=== PATIENT | male | born 1950 | race African-American/Black ===

== ENCOUNTER 2024-06-23 01:03 | Emergency (ER) | payer MEDICARE, SELFPAY ==
[2024-06-23] VITALS (8 sets, daily range): BP systolic 153–166; BP diastolic 58–73; BMI 28.2
--- NOTE | 2024-06-23 06:55 | ED.MUSCINJ ---
HPI-Injury
General
Chief Complaint: Musculo-Skeletal Complaint
Source: patient
Exam Limitations: none
Time Seen by Provider: 06/23/24 06:25
History of Present Illness-Injury
Initial Injury comments:
74-year-old male with history of dementia on Eliquis presents with daughter from [place] [facility] who states the patient has been complaining of hip pain left greater than the right and inability to straighten his leg. Patient is very inconsistent
historian. No reported recent injury. No reported fever. Patient denies chest pain or shortness of breath.
Phy Exam
Physical Exam
Physical Exam:
General: Well-appearing male no acute respiratory distress HEENT: Normocephalic atraumatic
Heart: Regular rate and rhythm
Lungs: Clear no wheeze
Musculoskeletal exam: The patient is slightly tender about the left hip. He prefers to hold his left hip in flexion. His right hip is able to be extended. He is very rigid and stiff with his left leg.
Skin: No rash
Extremities: No cyanosis extremities: No cyanosis
Injury Course
Orders/Labs/Results
Orders:
Orders
06/23/24 06:41
CR Femur - Left Min 2 Vw Urgent
Comment:
Reason For Exam: pain
CR Pelvis - 1 Or 2 Views Urgent
Comment:
Reason For Exam: pain
Venous Doppler Lwr Ext Bilat [US Periph Venous LOWER Ext Jeremi] Urgent
Comment:
Reason For Exam: pain in legs
06/23/24 06:[address] Non Medication Order As Directed
Physician Order: Please check rectal temp
Above order entered?: Yes
06/23/24 06:57
CPK [Creatine Phosphokinase] Stat
Complete Blood Count/With Diff Urgent
Comprehensive Metabolic Panel Urgent
Abnormal Lab Results
06/23/24
06:57
WBC 11.5 H 10^3/uL
(4.8-10.8)
RBC 2.98 L 10^6/uL
(4.70-6.10)
Hgb 8.3 L g/dL
(13.0-18.0)
Hct 23.6 L %
(39.0-52.0)
MCV 79.2 L fL
(80.0-94.0)
RDW 17.2 H %
(11.5-14.5)
Abs Immat Gran (auto) 0.2 H 10^3/uL
(0-0.05)
Absolute Neuts (auto) 8.6 H 10^3/uL
(1.4-6.5)
Absolute Monos (auto) 1.0 H 10^3/uL
(0.1-0.6)
Immature Gran % 1.3 H %
(0-0.5)
Lymphocytes % 11.5 L %
(20.5-51.1)
Chloride 112 H mmol/L
(98-107)
Carbon Dioxide 21 L mmol/L
(22-30)
BUN 23 H mg/dl
(9-20)
AST 16 L U/L
(17-59)
Creatine Kinase 26 L U/L
(55-170)
Total Protein 6.1 L g/dl
(6.3-8.2)
Albumin 3.0 L g/dl
(3.5-5.0)
06/23/24 06:57
06/23/24 06:57
MDM/Problems Addressed
Differential Diagnosis Includes:
Hip and leg pain. Consider spasm versus fracture versus DVT versus rhabdomyolysis.
Workup initiated with labs CPK ultrasound legs and x-rays.
*Critical Care Note
Total Time (30-74mins, 75-104mins- exclusive of procedures): Not Applicable
Update Note
Update Note:
Ultrasound negative both legs for DVT. X-rays were also negative. Labs reviewed no evidence of rhabdomyolysis. I suspect patient may be developing a contracture of his hip. No indication for admission. Stable for discharge back to facility
ED Attending Note
-
Portions of this chart may have been created with voice recognition software.� Occasional wrong word or��sound alike� substitutions may have occurred due to the inherent limitations of voice recognition software.
Discharge Plan
Departure
Patient Disposition: Home (Routine Discharge)
Date of Disposition: 06/23/24
Time of Disposition: 09:50
Patient with high blood pressure during this ER visit?: No
Discharge Problem:
Contracture of hip
Referrals:
Fredrick Glez, DO [Family Provider] -
Activity Restrictions/Additional Instructions:
Please continue to follow-up with the orthopedic doctor. Continue current medication regimen. Return if worse
Interventions
Interventions:
*Risk Screen - Suicide Last Done: 06/23/24 01:25
*General Assessment Last Done: 06/23/24 01:25
*Neglect/Abuse Screening Last Done: 06/23/24 01:25
*ED- Fall Risk Assessment Last Done: 06/23/24 01:25
*ED COVID-19 Vaccine History Last Done: 06/23/24 01:25
ED-Musculoskeletal Assessment Last Done: 06/23/24 01:30
Discharge Date and Time
Print Language: SLOVAK
[2024-06-23 07:18] LABS: ALT (SGPT) < 10 U/L (0-50); AST (SGOT) 16 U/L (17-59); Alkaline Phosphatase 107 U/L (38-126); Blood Urea Nitrogen 23 mg/dl (9-20); Calcium 8.7 mg/dl (8.4-10.2); Carbon Dioxide 21 mmol/L (22-30); Chloride 112 mmol/L (98-107); Creatine Phosphokinase 26 U/L (55-170); Estimated Creatinine Clearance 46 ml/min; Glucose 90 mg/dl (70-99); Potassium 3.9 mmol/L (3.5-5.1); Sodium 140 mmol/L (135-145); Total Bilirubin 0.5 mg/dl (0.2-1.3); Total Protein 6.1 g/dl (6.3-8.2); eGFR > 60.00
[2024-06-23 07:20] LABS: % Basophils 0.7 % (0-2); % Eosinophils 2.4 % (0-6); % Immature Granulocytes 1.3 % (0-0.5); % Lymphocytes 11.5 % (20.5-51.1); % Monocytes 8.9 % (1.7-9.3); % Neutrophils 75.2 % (42.2-75.2); Absolute Basophils 0.1 10^3/uL (0-0.2); Absolute Eosinophils 0.3 10^3/uL (0-0.7); Absolute Immature Granulocytes 0.2 10^3/uL (0-0.05); Absolute Lymphocytes 1.3 10^3/uL (1.2-3.4); Absolute Neutrophils 8.6 10^3/uL (1.4-6.5); Hematocrit 23.6 % (39.0-52.0); Hemoglobin 8.3 g/dL (13.0-18.0); Mean Corp Hgb Conc. 35.2 g/dL (33.0-37.0); Mean Corpuscular Hgb 27.9 pg (27.0-31.0); Mean Corpuscular Volume 79.2 fL (80.0-94.0); Nucleated Red Blood Cells % 0 % (-); Red Blood Cell Count 2.98 10^6/uL (4.70-6.10); Red Cell Dist. Width 17.2 % (11.5-14.5); White Blood Cell Count 11.5 10^3/uL (4.8-10.8)
[2024-06-23 09:07] LABS: Platelet Count 225 10^3/uL (130-400)
== END 2024-06-23 12:50 | disposition home or self-care (01) ==
LOC: EMR 01:03
PROVIDERS: Physician Assistant; EMERGENCY PHYSICIAN Emergency Medicine; FAMILY PHYSICIAN Internal Medicine
DX: M24.559 Contracture, unspecified hip (principal); F03.90 Unspecified dementia, unspecified severity, without behavioral disturbance, psychotic disturbance, mood disturbance, and anxiety; Z79.01 Long term (current) use of anticoagulants; M79.605 Pain in left leg; M79.604 Pain in right leg
CPT/HCPCS: 99284; 72170; 73552; 80053; 82550; 85025; 93970

== ENCOUNTER 2024-07-02 13:04 | Emergency (ER) | payer MEDICARE, SELFPAY ==
[2024-07-02 13:08] VITALS: BP 159/75
[2024-07-02 14:00] VITALS: BP 150/71
--- NOTE | 2024-07-02 15:14 | ED.GENMED ---
History of Present Illness
General
Chief Complaint: Anal/Rectal Problem
Source: patient
Exam Limitations: none
Time Seen by Provider: 07/02/24 14:52
History of Present Illness
History of Present Illness:
74-year-old male presents from [facility] with a discharge coming from his anus. He is status post colostomy. They note a large amount of discharge and normal. Patient has no complaints of pain. No reported fever. No other
complaints at this time
Phy Exam
Physical Exam
Physical Exam:
General: Well-appearing male no acute respiratory distress
HEENT: Normocephalic atraumatic
Heart: Regular rate and rhythm
Lungs: Clear no wheeze
Abdomen: Colostomy with output abdomen is soft and nontender
Rectal exam: Mucousy discharge noted from anus no excessive amount noted on diaper. No purulent drainage. No skin breakdown
Course
Vital Signs
Initial and Last Documented VS:
Initial Vital Signs
Temp Pulse Resp BP Pulse Ox
99.3 F 88 16 159/75 100
07/02/24 13:08 07/02/24 13:08 07/02/24 13:08 07/02/24 13:08 07/02/24 13:08
Last Documented Vital Signs
Temp Pulse Resp BP Pulse Ox
99.3 F 88 16 159/75 100
07/02/24 13:08 07/02/24 13:08 07/02/24 13:08 07/02/24 13:08 07/02/24 13:08
MDM/Problems Addressed
Differential Diagnosis Includes:
Patient with mucus drainage from anus. He is status post colostomy. No sign of infection pain-free at this point this is likely a normal physiologic process as he still has functioning rectal tissue. No indication for any intervention otherwise.
Stable for discharge back to facility
*Critical Care Note
Total Time (30-74mins, 75-104mins- exclusive of procedures): Not Applicable
ED Attending Note
-
Portions of this chart may have been created with voice recognition software.� Occasional wrong word or��sound alike� substitutions may have occurred due to the inherent limitations of voice recognition software.
Discharge Plan
Departure
Patient Disposition: Home (Routine Discharge)
Date of Disposition: 07/02/24
Time of Disposition: 15:17
Patient with high blood pressure during this ER visit?: No
Discharge Problem:
Rectal discharge
Prescriptions:
No Action
acetaminophen [Tylenol] 325 mg Tablet
650 mg PO Q6HPRN PRN (Reason: mild pain)
ondansetron HCl [Zofran] 4 mg Tablet
4 mg PO Q8HPRN PRN (Reason: nausea)
famotidine [Pepcid] 20 mg Tablet
20 mg PO DAILY
magnesium hydroxide [Milk of Magnesia] 400 mg/5 mL Suspension
2,400 mg PO HSPRN PRN (Reason: if no bm by 3rd day)
amlodipine [Norvasc] 10 mg Tablet
10 mg PO DAILY
bisacodyl [Dulcolax (bisacodyl)] 10 mg Suppository
10 mg [place] DAILYPRN PRN (Reason: if no bm aftr mom)
sertraline 25 mg Tablet
25 mg PO DAILY
hydralazine 50 mg Tablet
50 mg PO TID
insulin lispro 100 unit/mL Solution
1 sliding scale dose SC ACHS
Rx Instructions:
201-250=4unit, 251-300=6units
oxycodone 5 mg Tablet
2.5 mg PO BID
oxycodone 5 mg Tablet
5 mg PO HS
oxycodone 5 mg Tablet
10 mg PO DAILYPRN PRN (Reason: severe pains)
mirtazapine 7.5 mg Tablet
7.5 mg PO HS
Eliquis 5 mg Tablet
5 mg PO BID
potassium chloride 20 mEq Tablet Extended Release
20 meq PO DAILY
balsam brandon-castor oil [Venelex] Ointment
1 applic TOPICAL TID
Referrals:
UNKNOWN - PT NOT,INTERVIEWE [Family Provider] -
Activity Restrictions/Additional Instructions:
The discharge seen from the patient's rectum today is normal. There is no sign of infection. Return here if needed
Interventions
Interventions:
*Risk Screen - Suicide Last Done: 07/02/24 13:08
*General Assessment Last Done: 07/02/24 13:08
*Neglect/Abuse Screening Last Done: 07/02/24 13:08
*ED- Fall Risk Assessment Last Done: 07/02/24 13:08
*ED COVID-19 Vaccine History Last Done: 07/02/24 13:08
QG-Oznjou-Sudnsapapg Assessment Last Done: 07/02/24 13:08
Discharge Date and Time
Print Language: SERBIAN
--- NOTE | 2024-07-02 18:24 | CM ---
Received CM referral, for request to set-up services in the home , as family are unhappy with the care at [facility]. Spoke to and Daughter who stated that since a fractured hip approximately 5 months ago, he has been in a state of decline.
They stated he had been at two other SNF's , which they had care concerns as well and had a stay at [facility] for a perforated Colon. They stated another Daughter is a nurse at [facility] and they felt that she could check in on him ,
to make sure he was being cared for appropriately, but they feel on the days she does not work, that he is not getting the same care. They did state that they have been working with the Omnabudsman at [facility] as well as making staff at [facility]
aware of their concerns so they could be addressed. Since they continue to be unhappy with the care they have therefore decided to take him home.
I made them aware that if they are in need of private care givers , as well as additional pieces of medical equipment , and other services that it takes time to set-up them all up, and I would not want to send him home until the services he needs
are in place. I did state that we had spoken to Mahendra , at [facility], and he stated that he could return this evening, and that he would have a social media campaign manager visit them in the morning to start to arrange services so that he can go home. They said that
they have an extended family, with family members who can assist in his care, along with his two daughters who are nurses. I stated I would follow-up with [facility] in the Morning to insure that their social media campaign manager sees them to start the process of
setting up services for him to go home. Update to ED Nurse that Family agreeable for him to return to [facility] tonight , with the goal of social media campaign manager at [facility] setting up services so that he can be discharged home.
Spoke to Rukhsana, Liaison for [facility], made her aware that patient will be returning tonight to [facility] with the plan that the Deck Hand at [facility] would meet with them in the morning , to start the process of setting up services for him to go
home. She stated that she would make the facility aware that he would be returning tonight and she would follow-up to make sure that the social media campaign manager there met with them in the morning.
[2024-07-02 20:09] VITALS: BP 166/75
== END 2024-07-02 20:25 | disposition home or self-care (01) ==
LOC: EMR 13:04
PROVIDERS: EMERGENCY PHYSICIAN Emergency Medicine
DX: K62.89 Other specified diseases of anus and rectum (principal); Z93.3 Colostomy status
CPT/HCPCS: 99282

== ENCOUNTER 2024-07-05 22:39 | Inpatient (IN) | payer MEDICARE, SELFPAY ==
[2024-07-05] VITALS (13 sets, daily range): BP systolic 122–155; BP diastolic 58–78; BMI 27.3
--- NOTE | 2024-07-05 18:24 | EDRN ---
Patient arrived with a 16 [address] catheter in place. Catheter tubing was filled and clogged with milky like urine. Catheter was removed. After catheter was removed patient noted moderate bleeding from the penis. [address] catheter was
placed by Vee LORENZANA. a large amount of bloody urine was drained at first which then turned to a thick milky urine.
[2024-07-05 18:25] LABS: Urine Albumin 3+ (Neg - Trace); Urine Bilirubin Negative (Negative); Urine Character Cloudy (Clear); Urine Color Amber; Urine Glucose Negative (Negative); Urine Ketone Negative (Negative); Urine Leukocyte 3+ (Negative); Urine Nitrite Positive (Negative); Urine Occult Blood 4+ (Negative); Urine Specific Gravity 1.015 (<1.030); Urine Urobilinogen Negative (Neg - 1+)
[2024-07-05 18:27] LABS: Hematocrit 29.3 % (39.0-52.0); Hemoglobin 10.2 g/dL (13.0-18.0); Mean Corp Hgb Conc. 34.8 g/dL (33.0-37.0); Mean Corpuscular Hgb 27.6 pg (27.0-31.0); Mean Corpuscular Volume 79.4 fL (80.0-94.0); Mean Platelet Volume 9.7 fL (7.4-10.4); Platelet Count 281 10^3/uL (130-400); Red Blood Cell Count 3.69 10^6/uL (4.70-6.10); Red Cell Dist. Width 17.7 % (11.5-14.5); White Blood Cell Count 29.5 10^3/uL (4.8-10.8)
[2024-07-05 18:32] LABS: Lactic Acid 6.7 mmol/L (0.7-2.0)
[2024-07-05 18:37] LABS: Urine Bacteria Few (Negative); Urine Squamous Cell 0-2 /LPF (Few); Urine White Cell 90-100 /HPF (0-5)
[2024-07-05 18:46] LABS: Blood Urea Nitrogen 41 mg/dl (9-20); Calcium 9.4 mg/dl (8.4-10.2); Carbon Dioxide 15 mmol/L (22-30); Chloride 105 mmol/L (98-107); Estimated Creatinine Clearance 13 ml/min; Glucose 120 mg/dl (70-99); Sodium 139 mmol/L (135-145); eGFR 15.23
[2024-07-05] MEDS: ZOSYN 50 IV (18:52)
[2024-07-05] MEDS: NSS 2200 ML IV (18:52)
[2024-07-05] MEDS: OFIRMEV 100 IV (18:53)
[2024-07-05 19:02] LABS: % Basophils 0.3 % (0-2); % Immature Granulocytes 0.9 % (0-0.5); % Monocytes 7.7 % (1.7-9.3); % Neutrophils 89.1 % (42.2-75.2); Absolute Basophils 0.1 10^3/uL (0-0.2); Absolute Immature Granulocytes 0.3 10^3/uL (0-0.05); Absolute Lymphocytes 0.6 10^3/uL (1.2-3.4); Absolute Monocytes 2.3 10^3/uL (0.1-0.6); Absolute Neutrophils 26.3 10^3/uL (1.4-6.5); Nucleated Red Blood Cells % 0.1 % (-)
[2024-07-05 19:47] LABS: ALT (SGPT) < 10 U/L (0-50); AST (SGOT) 15 U/L (17-59); Albumin 3.1 g/dl (3.5-5.0); Alkaline Phosphatase 78 U/L (38-126); Blood Urea Nitrogen 42 mg/dl (9-20); Calcium 8.2 mg/dl (8.4-10.2); Carbon Dioxide 17 mmol/L (22-30); Chloride 107 mmol/L (98-107); Estimated Creatinine Clearance 15 ml/min; Glucose 108 mg/dl (70-99); Potassium 5.8 mmol/L (3.5-5.1); Sodium 136 mmol/L (135-145); eGFR 16.77
--- NOTE | 2024-07-05 20:30 | ED.GENMED ---
History of Present Illness
General
Chief Complaint: Change in Mental Status
Time Seen by Provider: 07/05/24 18:08
History of Present Illness
History of Present Illness:
74-year-old male with history of A-fib, CHF, hypertension, and hyperlipidemia presents the emergency department from [facility] due to a change in mental status. On arrival the patient is confused, tachycardic, and febrile.
His Cordon catheter appears to be clogged and an exchange was performed by RNs at the bedside with rapid return of purulent/milky urine
Review of Systems
Review of Systems
Allergies reviewed?: Yes
All Other Systems: ROS reviewed and negative except as documented in HPI and ROS
Phy Exam
Physical Exam
Physical Exam:
GEN: Ill-appearing, tachypneic, otherwise no distress
HEENT: Oral mucosa dry, no scleral icterus
Cardiac: Tachycardic, regular
Lung: Tachypneic, diminished bibasilar breath sound
Abdomen: Soft, nontender, right lower quadrant ostomy with greenish-brown stool in the bag
: Profoundly purulent urine present in Cordon catheter tubing and bag
MSK: No gross deformity or injuries
Skin: Good color, no pallor or jaundice, no rashes
Neuro: Floridly confused, follows commands
Psych: Calm, cooperative
Sepsis
Sepsis Screening
Sepsis Assessment: Septic Shock
Sepsis Screening: Lactate >/=4mmol/L
Sepsis Screen
Sepsis Screen: Septic Shock
Date: 07/05/24
Time: 23:33
Course
Orders/Labs/Results
Orders:
Orders
07/05/24 18:02
Electrocardiogram (*1) Urgent
Reason for Study: Other
Other Reason for Exam: Possible Sepsis
EKG- Treatment ONCE
Straight cath- Treatment ONCE
07/05/24 18:03
Basic Metabolic Panel Urgent
Complete Blood Count/With Diff Urgent
Blood Culture Q20M
STEPHANIE Source: Blood/Venous
Specimen Description:
Comment: Urgent from separate sites. If patient screens positive for possible sepsis
Blood Culture Q20M
STEPHANIE Source: Blood/Venous
Specimen Description:
Comment: Urgent from separate sites. If patient screens positive for possible sepsis
07/05/24 18:04
Lactic Acid Q4H
Comment: ON ICE, CANCEL 2ND ORDER IF FIRST LACTIC ACID LEVEL <2
Urinalysis Reflex To Culture Urgent
Date Specimen was Collected: 07/05/24
Time Specimen was Collected: 18:02
Urine Microscopic Reflex Cult Urgent
Urine Culture Urgent
STEPHANIE Source: U
Specimen Description:
Date Specimen was Collected: 07/05/24
Time Specimen was Collected: 18:02
07/05/24 18:32
Piperacillin/Tazo 3.375 Gram [Zosyn] 3.375 gram in 50 ml IV NOW
07/05/24 18:33
0.9% Sodium Chloride 1000 ml [Nss] 2,200 ml IV NOW STA
07/05/24 18:34
Acetaminophen 1000MG/100Ml [Ofirmev] 1,000 mg in 100 ml IV ONCE
Acetaminophen IV Indication:: ED Narcotic Naive Pt-ONCE
07/05/24 18:50
CT Abd/pel Without Iv Or Oral Urgent
Comment:
Reason For Exam: urosepsis
07/05/24 19:11
Comprehensive Metabolic Panel Urgent
07/05/24 20:30
Dextrose 5%/Water 1000 ml [D5w] 1,000 ml Sodium Bicarbonate 150 meq IV 125 mls/hr
07/05/24 21:53
Admit/Transfer Patient As Directed
Co-Sign Provider:
Level of Care: Inpatient admission
Assign to:: IMU- Intermediate Care
Physician / Group: Abimbola
Diagnosis: sepsis
Reason for Hospitalization: sepsis
Expected length of stay greater than two midnights?: Yes
ELOS- Estimated Length of Stay in days: 2
I certify the patient meets the requirements for IP care: Yes
07/05/24 21:54
PRN Pain Medication Management As Directed
May give lesser potent ordered pain med per pt: Yes
preference::
Protocol:: Medication orders for pain may be administered in a
manner that supports deferring to patient preference
when the pt is:
- Requesting an ordered lesser potent pain medication.
Least to most potent pain medications are defined
as: acetaminophen < NSAID < tramadol < opioids
(morphine, oxycodone, hydromorphone).
- Requesting a lesser dose of the same medication IF
ORDERED.
- Requesting a less intrusive route of administration
if both routes are prescribed by the provider (PO <
IV).
07/05/24 21:56
Code Status As Directed
Resuscitation Status: Full Code
07/05/24 22:00
0.45% Sodium Chloride 1000 ml [0.45%NaCl] 1,000 ml Sodium Bicarbonate 75 meq IV 100 mls/hr
07/05/24 22:15
Lactic Acid Q4H
Comment: ON ICE, CANCEL 2ND ORDER IF FIRST LACTIC ACID LEVEL <2
Abnormal Lab Results
07/05/24 07/05/24 07/05/24
18:03 18:04 19:11
WBC 29.5 H 10^3/uL
(4.8-10.8)
RBC 3.69 L 10^6/uL
(4.70-6.10)
Hgb 10.2 L g/dL
(13.0-18.0)
Hct 29.3 L %
(39.0-52.0)
MCV 79.4 L fL
(80.0-94.0)
RDW 17.7 H %
(11.5-14.5)
Abs Immat Gran (auto) 0.3 H 10^3/uL
(0-0.05)
Absolute Neuts (auto) 26.3 H 10^3/uL
(1.4-6.5)
Absolute Lymphs (auto) 0.6 L 10^3/uL
(1.2-3.4)
Absolute Monos (auto) 2.3 H 10^3/uL
(0.1-0.6)
Immature Gran % 0.9 H %
(0-0.5)
Neutrophils % 89.1 H %
(42.2-75.2)
Lymphocytes % 2.0 L %
(20.5-51.1)
Potassium 5.8 H mmol/L
(3.5-5.1)
Carbon Dioxide 15 L mmol/L 17 L mmol/L
(22-30) (22-30)
BUN 41 H mg/dl 42 H mg/dl
(9-20) (9-20)
Creatinine 3.9 H mg/dL 3.6 H mg/dL
(0.7-1.3) (0.7-1.3)
Glucose 120 H mg/dl 108 H mg/dl
(70-99) (70-99)
Lactic Acid 6.7 H* mmol/L
(0.7-2.0)
Calcium 8.2 L mg/dl
(8.4-10.2)
AST 15 L U/L
(17-59)
Total Protein 6.0 L g/dl
(6.3-8.2)
Albumin 3.1 L g/dl
(3.5-5.0)
Ur Occult Blood Reflex 4+ A
(Negative)
Urine Nitrite (Reflex) Positive A
(Negative)
Leukocyte Esterase Rfl 3+ A
(Negative)
Urine RBC 3-6 A /HPF
(0-2)
Urine WBC (Reflex) 90-100 A /HPF
(0-5)
Urine Bacteria (Reflex) Few A
(Negative)
Urine Albumin (Reflex) 3+ A
(Neg - Trace)
07/05/24 18:03
07/05/24 19:11
Vital Signs
Initial and Last Documented VS:
Initial Vital Signs
Pulse Resp BP Pulse Ox
120 33 155/68 99
07/05/24 18:00 07/05/24 18:00 07/05/24 18:00 07/05/24 18:00
Last Documented Vital Signs
Temp Pulse Resp BP Pulse Ox
102.6 F H 88 33 136/59 99
07/05/24 18:17 07/05/24 22:00 07/05/24 22:00 07/05/24 22:00 07/05/24 21:45
MDM/Problems Addressed
MDM/Problems Addressed:
Patient is severely ill with multiorgan failure secondary to septic shock from urinary tract infection. Broad-spectrum IV antibiotics and IV fluid resuscitation initiated, started on bicarbonate drip due to metabolic acidosis with hyperkalemia.
*Critical Care Note
Total Time (30-74mins, 75-104mins- exclusive of procedures): Not Applicable
Update Note
Update Note:
Attempted to reach out to martina Koch via telephone, voicemail box full unable to leave message
ED Attending Note
-
Portions of this chart may have been created with voice recognition software.� Occasional wrong word or��sound alike� substitutions may have occurred due to the inherent limitations of voice recognition software.
Discharge Plan
Departure
Patient Disposition: Admit
Date of Disposition: 07/05/24
Time of Disposition: 21:14
Admit to: Med/Surg
Presentation/result/management discussed w/ accepting MD/DO: Hospitalist
Discharge Problem:
Urinary tract infection, Septic shock
Interventions
Interventions:
*Risk Screen - Suicide Last Done: 07/05/24 18:19
*General Assessment Last Done: 07/05/24 18:19
*Neglect/Abuse Screening Last Done: 07/05/24 18:19
ED- Neurological Assessment Last Done: 07/05/24 18:19
ED- Cardiac Assessment Last Done: 07/05/24 18:19
ED Swallowing Screen Last Done: 07/05/24 21:51
[2024-07-05] MEDS: SODIUM BICARBONATE 1150 MEQ IV (21:08)
--- NOTE | 2024-07-05 21:16 | HPS.HSE ---
Family Physician
-
Family Physician: Fredrick Glez, DO
Chief Complaint
-
Altered mental status
History of Present Illness
74-year-old male with history of A-fib, CHF, hypertension, and hyperlipidemia presents the emergency department from [facility] due to a change in mental status.
According to daughter while patient was at the skilled nursing he had his catheter exchanged 2 days ago. She reported that the exchange was difficult according to the nursing staff but he was able to succeed by enlarging the correct size. She said
that yesterday the patient was less active and less interested for an interaction and also has reduced appetite. She also reported that he was grimacing for most of the day yesterday. When she saw him this morning he was very altered. Per nursing
home the patient developed a fever, became tachycardic and had a blood pressure of 80 systolic. She was sent to the emergency department for evaluation. On arrival in the emergency department the Fischer catheter appears to be clogged and an
exchange was performed by RNs at the bedside with rapid return of purulent urine.
The patient has had a recent prolonged hospitalization and rehab course. Was initially hospitalized in February for a hip fracture and sent to rehab. While at rehab the patient developed abdominal pain and altered mental status. He was sent back
to the hospital where was found to have a perforated bowel status post colectomy with end colostomy. He had a urinary catheter placed during that admission. Then in March the patient had another episode of altered mental status and had to be
admitted and treated for C. difficile and urinary tract infection. He seems to have been otherwise doing well since his discharge from that hospitalization. At baseline the daughter reports that the patient is alert and oriented at least x 2 and
is able to carry on a meaningful conversation.
He has a baseline aphasia with stuttering secondary to a prior CVA.
In the emergency department he was febrile to 102.6, blood pressure was 122/66 with a pulse of 89. Is satting 100% on room air. ECG shows sinus tachycardia. He has a leukocytosis to 29,000 on with a left shift. Hemoglobin and platelets are
stable. Electrolytes notable for potassium of 5.8, bicarb 17 with anion gap of 14. Glucose was normal. Lactic acid was elevated at 6.7.
UA was markedly positive with positive nitrites positive leukocyte esterase WBCs and few bacteria.
Medical History
Past Medical History
Past Medical History: Reports CHF, CVA, Dementia, HTN and IDDM
Additional Past Medical History:
Recent history of C. difficile
Chronic indwelling urinary cath pending outpatient urology follow-up
Past Surgical History: Reports Bowel Resection (End colostomy)
Social History
Tobacco: Non-smoker
Alcohol: None
Drug: None
Personal:
Living: Long-Term
Employment: Retired
Family History
Family History: Not pertinent
Allergies / Home Medications
Allergies reflects when Allergies were last updated in [facility].
Home Medications with original date entered in [facility]
Allergy/Medication List:
Allergies
Allergy/AdvReac Type Severity Reaction Status Date / Time
shellfish derived Allergy Unknown Verified 07/05/24 18:59
Home Medications
acetaminophen 325 mg tablet (Tylenol) 650 mg PO Q6HPRN PRN mild pain/fever 07/02/24
amlodipine 10 mg tablet (Norvasc) 10 mg PO DAILY 07/02/24
apixaban 5 mg tablet (Eliquis) 5 mg PO BID 07/02/24
balsam brandon-castor oil topical ointment (Venelex topical ointment) 1 applic topical QPM coccyx 07/02/24
bisacodyl 10 mg rectal suppository (Dulcolax (bisacodyl)) 10 mg [place] DAILYPRN PRN if no bm after mom 07/02/24
famotidine 20 mg tablet (Pepcid) 20 mg PO DAILY 07/02/24
hydralazine 50 mg tablet 50 mg PO TID 07/02/24
insulin lispro 100 unit/mL subcutaneous solution 1 sliding scale dose SC ACHS 07/02/24
magnesium hydroxide 400 mg/5 mL oral suspension (Milk of Magnesia) 2,400 mg PO HSPRN PRN if no bm by 3rd day 07/02/24
mirtazapine 7.5 mg tablet 7.5 mg PO HS 07/02/24
ondansetron HCl 4 mg tablet 4 mg PO Q8HPRN PRN nausea 07/02/24
oxycodone 5 mg tablet 2.5 mg PO BID 07/02/24
oxycodone 5 mg tablet 5 mg PO HS 07/02/24
oxycodone 5 mg tablet 10 mg PO BIDPRN PRN severe pains/breakthrough pain 07/02/24
sertraline 25 mg tablet 25 mg PO DAILY 07/02/24
glucagon HCl 1 mg solution for injection (Glucagon (HCl) Emergency Kit) 1 mg SC [id number] PRN symptomatic hypoglycemia 07/05/24
potassium chloride 10 mEq tablet,extended release(part/cryst) 20 meq PO DAILY 07/05/24
Review of Systems
-
Unable to obtain full review of systems at this time due to: Dementia
History Source: Family
Constitutional: Reports No Symptoms
EENT: Reports No Symptoms
Respiratory: Reports No Symptoms
Cardiac: Reports No Symptoms
Abdomen/GI: Reports No Symptoms
: Reports Fischer
Musculoskeletal: Reports No Symptoms
Skin: Reports No Symptoms
Neurological: Reports Other (confusion)
Endocrine: Reports No Symptoms
Hematologic/Lymphatic: Reports No Symptoms
Psych: Reports Dementia
Physical Exam
Vital Signs
Vital Signs
Temp Pulse Resp BP Pulse Ox
102.6 F H 89 17 122/66 100
07/05/24 18:17 07/05/24 20:45 07/05/24 20:45 07/05/24 20:40 07/05/24 20:45
Physical Exam
General: Conversant and Appears Chronically Ill
HEENT: NormoCephalic, Anicteric, Moist mucous membranes, Atraumatic and PERRLA
Respiratory: Clear
Cardiac: S1/S2 and Regular Rhythm
Breast: Deferred by me
GI: Soft, Non Tender, Non Distended and Ostomy
Rectal: Deferred by Provider
Genito-urinary: Turbid Urine and Fischer
Musculoskeletal: No Clubbing, No Cyanosis and No Edema
Skin: Rash
Neuro: Alert, Oriented (oriented to person ), Nonfocal/grossly intact and Slurred Speech (mild dysarthria, stammering); No Facial Droop
Hematologic/Lymphatic: No Lymphadenopathy
Psych: Confused
Laboratory Results
-
07/05/24 18:03
07/05/24 19:11
Laboratory Results
Lactic Acid 6.7 mmol/L (0.7-2.0) H* 07/05/24 18:04
Total Bilirubin 1.0 mg/dl (0.2-1.3) 07/05/24 19:11
AST 15 U/L (17-59) L 07/05/24 19:11
ALT < 10 U/L (0-50) 07/05/24 19:11
Alkaline Phosphatase 78 U/L (38-126) 07/05/24 19:11
Data Reviewed
-
Medical Tests (Nuc Med, Echo, EKG etc): Image Personally Visualized and interpreted
Lab Data: Labs Reviewed by me
Old Records: Reviewed
Impression/Plan
-
IMPRESSION:
76-year-old with history of CHF, atrial fibrillation on anticoagulation, hypertension, chronic pain, recent prolonged hospitalization with perforated bowel status post colectomy and end colostomy, C. difficile infection, UTI, now with indwelling
urinary catheter with BPH who comes to the emergency department with altered mental status low blood pressure and elevated lactic acid and found to have a urinary tract infection complicated by malfunctioning urinary catheter was exchanged 2 days
ago. Patient is currently stable with a blood pressure of 132, afebrile and nontachycardic. Lactic acid was elevated at 6.5 with repeat pending. He has a ROBERT with a creatinine that is up to 3.8 from a baseline around 1.2.
PLAN:
1. Sepsis - urinary source, elevated lactic acid and tachycardia
- admit to IMU
- s/p 2 L NS, continue with IV 1/2 NS + 75 meq bicarb
- blood and urine cultures
- given recent hospitalizations and treatments, will continue with zosyn for now pending cultures
- obtain prior urine cultures from outside hospital in am
- monitor volume status given h/o CHF
2. ROBERT - BL Cr 1.2, now > 3. Mild GAP and non gap acidosis. Likely secondary to obstruction and sepsis.
- treatment for sepsis as above
- continue fischer decompression and monitor i/os
- avoid nephrotoxins
- IV bicarb supplementation
2. AFIB - Currentl yrate controlled
- continue apixaban 2.5 bid for now
- not on any rate control agent
3. CHF - euvolemic to hypovolemic
- IV fluids as above
- hydralazine to start tomorrow with hold parameters
- amlodipine with hold parameters
4. DM II
- sliding scale insulin for now
Wound care consult
PT consult
CM (patient wants to return home with family)
DVT PPX - on apixaban
Code status - Full code
[2024-07-05] MEDS: SODIUM BICARBONATE 1075 MEQ IV (22:17)
[2024-07-06] VITALS (12 sets, daily range): BP systolic 110–163; BP diastolic 57–119; BMI 27.3; BMI 25.9
[2024-07-06 00:25] LABS: Lactic Acid 2.1 mmol/L (0.7-2.0)
[2024-07-06] MEDS: APRESOLINE 50 MG PO (01:18)
[2024-07-06] MEDS: ROXICODONE 5 MG PO ×2 (01:19→20:59)
[2024-07-06] MEDS: ZOSYN 50 IV ×5 (01:19→23:15)
[2024-07-06] MEDS: REMERON 7.5 MG PO ×2 (01:19→20:59)
--- NOTE | 2024-07-06 02:16 | PTCARENOTE ---
Received patient from the ED overnight. Afebrile on room air. Cordon draining milky urine. C/o all over body pain. Standing dose of roxicodone given.
[2024-07-06] MEDS: TYLENOL 650 MG PO (03:14)
[2024-07-06 04:11] LABS: Lactic Acid 1.2 mmol/L (0.7-2.0)
[2024-07-06 05:09] LABS: Hematocrit 19.5 % (39.0-52.0); Hemoglobin 6.9 g/dL (13.0-18.0); Mean Corp Hgb Conc. 35.4 g/dL (33.0-37.0); Mean Corpuscular Hgb 27.4 pg (27.0-31.0); Mean Corpuscular Volume 77.4 fL (80.0-94.0); Mean Platelet Volume 9.3 fL (7.4-10.4); Platelet Count 165 10^3/uL (130-400); Red Blood Cell Count 2.52 10^6/uL (4.70-6.10); Red Cell Dist. Width 17.6 % (11.5-14.5); White Blood Cell Count 20.1 10^3/uL (4.8-10.8)
[2024-07-06 05:23] LABS: Blood Urea Nitrogen 43 mg/dl (9-20); Calcium 8.2 mg/dl (8.4-10.2); Carbon Dioxide 20 mmol/L (22-30); Chloride 111 mmol/L (98-107); Estimated Creatinine Clearance 15 ml/min; Glucose 112 mg/dl (70-99); Potassium 4.7 mmol/L (3.5-5.1); Sodium 138 mmol/L (135-145); eGFR 17.35
--- NOTE | 2024-07-06 05:39 | W.PN.UPDATE ---
Update Note
Progress Note Update
0530 RN reporting morning HH dropped from 10.3 to 6.9. Pt admitted overnight for urosepsis. It was reported, that when fischer catheter was exchanged in ED that pt had a mod-large amount of blood from penis and also Fischer bag initially then changed to
milky colored urine. IMU RN stated pt gown on arrival had dried blood on it.
Type screen ordered
Pt is confused- call placed to daughter Zee Moody and call went straight to and mailbox full.
--- NOTE | 2024-07-06 05:56 | PTCARENOTE ---
AM hgb 6.9. house calls nurse practitioner provider made aware and ordered type and screen. Bev placed on hold.
--- NOTE | 2024-07-06 06:35 | PTCARENOTE ---
T max 101.4 overnight. PRN tylenol given.
[2024-07-06 07:06] LABS: Glucose - Point of Care 124 mg/dl (70-99)
--- NOTE | 2024-07-06 07:56 | PTCARENOTE ---
Addendum entered by Lakisha Morales 07/06/24 09:06:
Stat repeat labs drawn and sent. Dr. Russell Diaz notified of results.
Original Note:
Report received from shift supervisor melting RN. Pt with significant drop in HGB- see labs. Dr. Russell Diaz notified via TT.
[2024-07-06] MEDS: NOVOLOG FLEXPEN-LOW RESISTANCE SC ×3 (07:57→17:12)
[2024-07-06] MEDS: APRESOLINE PO (07:58)
[2024-07-06] MEDS: PEPCID 20 MG PO (08:35)
[2024-07-06] MEDS: NORVASC 10 MG PO (08:35)
[2024-07-06] MEDS: ROXICODONE 2.5 MG PO ×2 (08:42→18:00)
[2024-07-06 08:59] LABS: Hematocrit 20.6 % (39.0-52.0); Hemoglobin 7.4 g/dL (13.0-18.0); Mean Corp Hgb Conc. 35.9 g/dL (33.0-37.0); Mean Corpuscular Hgb 27.9 pg (27.0-31.0); Mean Corpuscular Volume 77.7 fL (80.0-94.0); Platelet Count 181 10^3/uL (130-400); Red Blood Cell Count 2.65 10^6/uL (4.70-6.10); Red Cell Dist. Width 17.7 % (11.5-14.5); White Blood Cell Count 22.8 10^3/uL (4.8-10.8)
[2024-07-06 09:11] LABS: Blood Urea Nitrogen 46 mg/dl (9-20); Calcium 7.9 mg/dl (8.4-10.2); Carbon Dioxide 21 mmol/L (22-30); Chloride 109 mmol/L (98-107); Estimated Creatinine Clearance 15 ml/min; Glucose 113 mg/dl (70-99); Potassium 5.1 mmol/L (3.5-5.1); Sodium 138 mmol/L (135-145); eGFR 17.96
[2024-07-06 11:19] LABS: Glucose - Point of Care 125 mg/dl (70-99)
--- NOTE | 2024-07-06 12:31 | CM ---
Reviewed the chart notes and spoke with RN preparation plant supervisor at [facility]. Per preparation plant supervisor, patient is wheelchair bound with assist of 1-2 for transfers. The patient prior to NH placement he resided with his . [facility] is holding the bed for two
more days. CM continues to be available to patient/family and is monitoring medical plan for needs at discharge.
Plan: Discharge back to [facility] when medically stable and bed available.
[2024-07-06] MEDS: D5/0.45%NACL 1000 IV (14:13)
[2024-07-06] MEDS: ROXICODONE 10 MG PO (14:16)
--- NOTE | 2024-07-06 14:19 | W.PN.HOSP.TC ---
Today's Communication/Plan
-
Assessment / Plan
Assessment / Plan
DMM
No JVD
CTABL
RRR, S1/S2
Soft, NT, ND, BS+
Colostomy with stool liquid
Cordon catheter with yellow urine
Warm, Dry
Lethargic, not opening his eyes however moving around responding cannot tell me where he is states he is in [place]
Septic shock, suspected urinary source, lactate was greater than 4 and now cleared
IV fluids
Blood and urine cultures need to be followed, urine culture growing Klebsiella, blood culture GNR's which is likely the same
Continue Zosyn
Follow-up on blood culture sensitivities and speciation
ROBERT with a baseline creatinine of 1.2
Cordon for decompression
Discontinue IV bicarb as bicarb has improved with slight improvement in renal function
If not improving with fluids initiated half NS at a rate of 88 then would consult nephrology
Will place renal bladder ultrasound along with urine studies as well
Hyperkalemia
5.8 likely related to urinary obstruction now improved
Repeat BMP in the a.m.
Monitor on telemetry
Metabolic acidosis likely secondary to renal dysfunction
Expect to improve as renal function improves
Toxic metabolic encephalopathy in the likely setting of infection.
Expect to improve with IV antibiotics.
Does have metabolic components as well with BUN/creatinine of 46 3.4 bicarb of 21.
As renal function improves it would expect overall mental status to improve as well..
Paroxysmal AFIB - Currentl yrate controlled
- continue apixaban 2.5 bid for now
- not on any rate control agent
Anticipated Discharge: > 48 hours
Subjective/Interval History
-
Date of Service: July 06, 2024
seen and examined. no new complaints. no acute overnight events
Objective Data
-
Labs:
Laboratory Results
0507/06/24 07/06/24
03:50 03:50 03:50
WBC Cancelled
Hgb Cancelled
Hct Cancelled
Plt Count Cancelled
Sodium Cancelled Cancelled
Potassium Cancelled Cancelled
Chloride Cancelled
Carbon Dioxide
BUN
Creatinine
Glucose
Calcium
07/06/24 07/06/24 07/06/24
03:50 03:50 03:50
WBC
Hgb
Hct
Plt Count
Sodium
Potassium
Chloride Cancelled
Carbon Dioxide Cancelled Cancelled
BUN Cancelled Cancelled
Creatinine Cancelled
Glucose
Calcium
07/06/24 07/06/24 07/06/24
03:50 03:50 03:50
WBC
Hgb
Hct
Plt Count
Sodium
Potassium
Chloride
Carbon Dioxide
BUN
Creatinine Cancelled
Glucose Cancelled Cancelled
Calcium Cancelled Cancelled
07/06/24 07/06/24
04:55 08:46
WBC 20.1 H 22.8 H
Hgb 6.9 L* D 7.4 L
Hct 19.5 L* 20.6 L*
Plt Count 165 D 181
Sodium 138 138
Potassium 4.7 5.1
Chloride 111 H 109 H
Carbon Dioxide 20 L 21 L
BUN 43 H 46 H
Creatinine 3.5 H 3.4 H
Glucose 112 H 113 H
Calcium 8.2 L 7.9 L
Vital Signs:
Vital Signs
Temp Pulse Resp BP Pulse Ox
97.8 F 71 15 110/57 100
07/06/24 11:29 07/06/24 10:00 07/06/24 10:00 07/06/24 10:00 07/06/24 10:34
I&O
07/05/24 07/06/24 07/07/24
06:59 06:59 06:59
Intake Total 850 / 850
Output Total 1500 / 1500 400 / 400
Balance -650 / -650 -400 / -400
--- NOTE | 2024-07-06 14:54 | PTCARENOTE ---
pt's assessment as documented. Aox1. Drowsy, agitated with care. Pt becoming slightly more awake and talkative throughout the day but remains confused. NSR on tele monitor. Pt c/o whole body pain, PRN Meli administered. Bed alarm in place for
safety.
[2024-07-06 16:40] LABS: Glucose - Point of Care 130 mg/dl (70-99)
[2024-07-06 21:47] LABS: Glucose - Point of Care 134 mg/dl (70-99)
[2024-07-07] VITALS (19 sets, daily range): BP systolic 108–141; BP diastolic 58–78; PULSE 78–83; BMI 25.9
[2024-07-07] MEDS: D5/0.45%NACL 1000 IV ×2 (03:11→17:45)
--- NOTE | 2024-07-07 03:50 | PTCARENOTE ---
Patient agitated and refusing blood work. Needle was in patients vein after procedures explained and patient swung his arm causing needle to fall out of place and almost stick nurse.
--- NOTE | 2024-07-07 04:29 | PTCARENOTE ---
PCT attempted to get am lab work again with nurse assistance and patient again refused and swung arm at staff.
[2024-07-07] MEDS: ZOSYN 50 IV ×4 (05:26→23:47)
--- NOTE | 2024-07-07 05:54 | PTCARENOTE ---
Patient afebrile overnight. Urethra still with small amount of blood but improving from night prior. IVF, IV ABX infusing as ordered. Patient agitated with care at times and refusing am labs x2.
--- NOTE | 2024-07-07 06:29 | W.PN.HOSP.TC ---
Today's Communication/Plan
-
see a/p
Assessment / Plan
Assessment / Plan
Physical Exam
General: no acute distress, appears comfortable at this time
HEENT: moist mucous membrane
Pulm: Clear to auscultation b/l
Cardio: RRR, S1/S2
Abd:Soft, NT, ND, BS+, Colostomy+
: Fischer catheter with yellow urine
Skin: Warm, Dry
Neuro: AOx1 oriented to self only
Psych: calm
74M afib Eliquis CHF HTN HLD DM from [facility] Chronic Fischer Colostomy hx CVA w/ residual aphasia here for sepsis uti 2/2 fischer obstruction since replaced.
Septic shock, suspected urinary source, lactate >4 since resolved
IV fluids
Blood and urine cultures need to be followed, urine culture growing Klebsiella, blood culture GNR's which is likely the same
Continue Zosyn
Follow-up on blood culture sensitivities and speciation
ROBERT with a baseline creatinine of 1.2
Fischer for decompression
IVF
trend Cr
Hyperkalemia
5.8 likely related to urinary obstruction since resolved
Metabolic acidosis likely secondary to renal dysfunction
Since improved though not resolved
Toxic metabolic encephalopathy in the likely setting of infection.
since improved though some confusion remains evident as per family
Does have metabolic components as well with BUN/creatinine of 46 3.4 bicarb of 21.
As renal function improves it would expect overall mental status to improve as well..
Acute Blood Loss Anemia
Significant Hematuria noted on Replacement Fischer since resolved
-Urology eval appreciated
-home Eliquis on hold for now
-Daughter consented for patient's transfusion as necessary
-1PRBC transfusion 07/07 Hgb trickled down to 7.1 Follow up post-transfusion response with AM labs
Paroxysmal AFIB
- Currently NSR
-Eliquis on hold as above
PT/OT appreciated SNF rehab
Full Code
discussed with patient and patient's daughter Zee
I spent a total of 50 minutes with the patient or on the floor. More than 50% of this time involved counseling and coordination of care.
Anticipated Discharge: 24 - 48 hours
Subjective/Interval History
-
Date of Service: July 07, 2024
no acute distress, appears comfortable at this time. AOx1 oriented only to self. Some aphasia noted but largely conversant coherent.
Objective Data
-
Labs:
Laboratory Results
07/07/24
06:00
WBC Pending
Hgb Pending
Hct Pending
Plt Count Pending
Sodium Pending
Potassium Pending
Chloride Pending
Carbon Dioxide Pending
BUN Pending
Creatinine Pending
Glucose Pending
Calcium Pending
Vital Signs:
Vital Signs
Temp Pulse Resp BP Pulse Ox
98.0 F 70 11 123/62 97
07/07/24 06:26 07/07/24 06:00 07/07/24 06:00 07/07/24 06:00 07/07/24 06:00
I&O
07/05/24 07/06/24 07/07/24
06:59 06:59 06:59
Intake Total 850 / 850 1780 / 1780
Output Total 1500 / 1500 800 / 800
Balance -650 / -650 980 / 980
[2024-07-07 07:29] LABS: Hematocrit 20.6 % (39.0-52.0); Hemoglobin 7.2 g/dL (13.0-18.0); Mean Corpuscular Hgb 27.4 pg (27.0-31.0); Mean Corpuscular Volume 78.3 fL (80.0-94.0); Mean Platelet Volume 10.3 fL (7.4-10.4); Platelet Count 165 10^3/uL (130-400); Red Blood Cell Count 2.63 10^6/uL (4.70-6.10); Red Cell Dist. Width 17.7 % (11.5-14.5); White Blood Cell Count 19.7 10^3/uL (4.8-10.8)
[2024-07-07 07:57] LABS: Glucose - Point of Care 111 mg/dl (70-99)
[2024-07-07 08:16] LABS: Blood Urea Nitrogen 47 mg/dl (9-20); Calcium 7.8 mg/dl (8.4-10.2); Carbon Dioxide 22 mmol/L (22-30); Chloride 109 mmol/L (98-107); Estimated Creatinine Clearance 18 ml/min; Glucose 113 mg/dl (70-99); Iron 26 ug/dl (49-181); Potassium 3.9 mmol/L (3.5-5.1); Sodium 138 mmol/L (135-145); eGFR 20.87
[2024-07-07 08:25] LABS: Percent Saturation 17 % (20-50); Total Iron Binding Capacity 152 ug/dl (261-462)
[2024-07-07] MEDS: NOVOLOG FLEXPEN-LOW RESISTANCE SC ×3 (08:37→17:50)
--- NOTE | 2024-07-07 09:15 | CM ---
Patient from [facility] with Hx colostomy with Dx Septic shock suspected urinary source, TME. Room air. Receiving IVF, IV Abx.
Spoke with Rukhsana Sullivan and Mahendra Sample Dye Mixer at [facility]; patient was at [facility] for short term rehab and it is uncertain if he is returning to SNF or going home, based on his daughters wishes. There is no bed hold. The patient
appeared to have 'mental fog'. He did not improve much in his mobility while there receiving PT/OT, and he mostly sat in his w/c. [employer] lift was being used for transfers. The patient has 2 daughters who are both nurses at that SNF. Mahendra was
uncertain what resources daughters have available for caring for the patient at home.
Message to Dr Wray requesting PT/OT Evals.
Plan follow up with patient/daughters after seen by PT/OT.
[2024-07-07] MEDS: PEPCID 20 MG PO (09:29)
[2024-07-07] MEDS: NORVASC 10 MG PO (09:29)
[2024-07-07] MEDS: ROXICODONE 2.5 MG PO ×2 (09:30→17:41)
[2024-07-07 10:04] LABS: Folate 5.1 ng/ml (2.76-20); Vitamin B12 541 pg/ml (239-931)
--- NOTE | 2024-07-07 10:40 | WOUNDNOTE ---
[facility] RN note: Patient admitted with urosepsis
See H&P for complete history.
PMH: Extensive PMH including recent hip fracture, bowl perf with colostomy and C-diff. CHF, A-fib
Wound Location and type/assessment: Patient admitted with stage 3 to bilateral lateral heels. See worklist for measurements. Both wounds are dry, with adherent sloughy tissue. No odor noted from wounds. Patient is a poor historian who was unable to
give details. Per chart review [facility] Patient was found to have dressings with scant drainage from overnight cashier. Heel relief boots have already been ordered at patient was wearing at time of assessment. + faint pedal
pulses. Also noted was left contracted knee. Sacrum is intact. Ileectomy intact.
Appetite: Likely poor, declined breakfast
Pressure redistribution devices in place: Centrella Max Air, heel relief boots, patient placed in left semi-side lying position.
Plan: Will recommend Honey Gel and off-loading of heels with fiber filled boots. Colostomy supplies ordered for bedside. Will confirm orders with hospitalist and update nurse. Updated care plan and will follow as needed.
Note to case management of equipment requested for discharge:
Recommend follow up at wound care center upon discharge.
[2024-07-07 12:11] LABS: Hematocrit 20.3 % (39.0-52.0); Hemoglobin 7.1 g/dL (13.0-18.0)
[2024-07-07 13:12] LABS: Glucose - Point of Care 121 mg/dl (70-99)
--- NOTE | 2024-07-07 14:14 | PTCARENOTE ---
Pt's assessment as documented. Aox1. Drowsy, agitated with care. NSR on tele monitor. Unit of PRBC's infusing at this time. Daughter updated via phone. Bed alarm in place for safety.
--- NOTE | 2024-07-07 16:52 | CONS.URO ---
Consultation
-
Requesting Provider: Nils
Performing Provider: Gary
Reason for Consultation: cUTI, bacteremia, hematuria
Medical History
History of Present Illness
74M presented to ED w/ change in mental status from [facility].
Per daughter, he had catheter routinely exchanged 2 days ago.
Exchange noted to be difficult per nursing staff - but able to place larger catheter w/o issue.
Patient noted to have fever, tachycardia, and SBP 80 - sent to ED.
In ED, Cordon catheter noted to be obstructed and exchanged by RNs w/ rapid return of purulent urine.
Transient blood per urethra and in Cordon catheter initially noted - now resolved.
Baseline aphasia and stuttering secondary to prior CVA.
Patient notably somnolent during time of exam and evaluation.
Past Medical History
Past Medical History: CHF, CVA, HTN, IDDM and Other (urinary retention)
Social History
Unable to obtain full social history at this time due to: Acuity
Tobacco: Non-smoker
Alcohol: None
Drug: None
Personal:
Living: [facility]
Employment: Retired
Family History
Family History: Reviewed & Not Pertinent
Allergies/Home Medications
Allergies
Allergy/AdvReac Type Severity Reaction Status Date / Time
shellfish derived Allergy Unknown Verified 07/05/24 18:59
Home Medications
�Medication �Instructions �Recorded �Confirmed �Type
acetaminophen 325 mg tablet 650 mg PO Q6HPRN PRN mild 07/02/24 07/05/24 History
(Tylenol) pain/fever
amlodipine 10 mg tablet (Norvasc) 10 mg PO DAILY 07/02/24 07/05/24 History
apixaban 5 mg tablet (Eliquis) 5 mg PO BID 07/02/24 07/05/24 History
balsam brandon-castor oil topical 1 applic topical QPM coccyx 07/02/24 07/05/24 History
ointment (Venelex topical ointment)
bisacodyl 10 mg rectal suppository 10 mg W[place] DAILYPRN PRN if no bm 07/02/24 07/05/24 History
(Dulcolax (bisacodyl)) after mom
famotidine 20 mg tablet (Pepcid) 20 mg PO DAILY 07/02/24 07/05/24 History
hydralazine 50 mg tablet 50 mg PO TID 07/02/24 07/05/24 History
insulin lispro 100 unit/mL 1 sliding scale dose SC ACHS 07/02/24 07/05/24 History
subcutaneous solution
magnesium hydroxide 400 mg/5 mL 2,400 mg PO HSPRN PRN if no bm by 07/02/24 07/05/24 History
oral suspension (Milk of Magnesia) 3rd day
mirtazapine 7.5 mg tablet 7.5 mg PO HS 07/02/24 07/05/24 History
ondansetron HCl 4 mg tablet 4 mg PO Q8HPRN PRN nausea 07/02/24 07/05/24 History
oxycodone 5 mg tablet 2.5 mg PO BID 07/02/24 07/05/24 History
oxycodone 5 mg tablet 5 mg PO HS 07/02/24 07/05/24 History
oxycodone 5 mg tablet 10 mg PO BIDPRN PRN severe 07/02/24 07/05/24 History
pains/breakthrough pain
sertraline 25 mg tablet 25 mg PO DAILY 07/02/24 07/05/24 History
glucagon HCl 1 mg solution for 1 mg SC [id number] PRN symptomatic 07/05/24 07/05/24 History
injection (Glucagon (HCl) hypoglycemia
Emergency Kit)
potassium chloride 10 mEq 20 meq PO DAILY 07/05/24 07/05/24 History
tablet,extended release(part/cryst)
Review of Systems
-
Unable to obtain full review of systems at this time due to: Acuity
History Source: Patient, [facility] and Transfer Record
A 12 point Review of Systems was completed except as noted: Yes
Physical Exam
Vital Signs
Vital Signs
Temp Pulse Resp BP Pulse Ox
98.0 F 72 18 108/61 98
07/07/24 14:24 07/07/24 14:24 07/07/24 14:24 07/07/24 14:05 07/07/24 14:24
Lab / Testing Results
Laboratory Results
07/07/24 11:48
07/07/24 07:08
Physical Exam
General: No Apparent Distress
HEENT: Normocephalic and Anicteric
Respiratory: Non Labored Respirations
Cardiac: Regular Rhythm
Breast: N/A
GI: Soft, Non Tender and Non Distended
Rectal: Deferred by Provider
Genito-urinary: No Costovertebral Tend, Clear Urine and Cordon Catheter
Musculoskeletal: No Edema
Skin: Warm and Dry
Neuro: Sedated
Assessment / Plan
-
Obstructed Cordon catheter
Urosepsis - cUTI w/ Klebsiella bacteremia
Urinary retention
ROBERT
exam demonstrates well-positioned Cordon catheter w/ clear yellow UOP in tubing and bag.
- Maintain Cordon catheter to drainage
- Continue q4wk long-term catheter changes once discharged to [place]
- IV antibiotics pending Cx S/S (Klebsiella bacteremia, UCx pending)
D/w Dr. Wray.
Data Reviewed
-
Total Time Spent with Patient (in minutes): 25
CT Scan: Image personally visualized and interpreted, Report Reviewed by Me and Discussed with Physician
Lab Data: Labs Reviewed and Discussed with Physician
Old Records: Reviewed
--- NOTE | 2024-07-07 17:06 | PTCARENOTE ---
Unit of PRBC's completed, pt tolerated well.
[2024-07-07 17:58] LABS: Glucose - Point of Care 120 mg/dl (70-99)
[2024-07-07] MEDS: REMERON 7.5 MG PO (19:40)
[2024-07-07] MEDS: ROXICODONE 5 MG PO (19:40)
[2024-07-07 21:55] LABS: Glucose - Point of Care 133 mg/dl (70-99)
[2024-07-08] VITALS (12 sets, daily range): BP systolic 131–158; BP diastolic 55–69
[2024-07-08] MEDS: D5/0.45%NACL 1000 IV (04:22)
[2024-07-08] MEDS: ZOSYN 50 IV ×3 (05:22→17:05)
[2024-07-08 05:24] LABS: Blood Urea Nitrogen 42 mg/dl (9-20); Calcium 7.4 mg/dl (8.4-10.2); Carbon Dioxide 19 mmol/L (22-30); Chloride 114 mmol/L (98-107); Estimated Creatinine Clearance 18 ml/min; Glucose 102 mg/dl (70-99); Magnesium 2.1 mg/dl (1.6-2.3); Phosphorus 3.2 mg/dl (2.5-4.5); Potassium 3.6 mmol/L (3.5-5.1); Sodium 138 mmol/L (135-145); eGFR 21.74
[2024-07-08 05:41] LABS: Hematocrit 25.2 % (39.0-52.0); Hemoglobin 8.9 g/dL (13.0-18.0); Mean Corp Hgb Conc. 35.3 g/dL (33.0-37.0); Mean Corpuscular Hgb 27.7 pg (27.0-31.0); Mean Corpuscular Volume 78.5 fL (80.0-94.0); Mean Platelet Volume 10.4 fL (7.4-10.4); Platelet Count 166 10^3/uL (130-400); Red Blood Cell Count 3.21 10^6/uL (4.70-6.10); Red Cell Dist. Width 17.4 % (11.5-14.5); White Blood Cell Count 19.8 10^3/uL (4.8-10.8)
[2024-07-08] MEDS: NSS 1000 IV ×2 (05:45→20:09)
--- NOTE | 2024-07-08 06:10 | PTCARENOTE ---
No acute events overnight. Cooperative with care including AM labs. Afebrile.
[2024-07-08] MEDS: PEPCID 20 MG PO (08:02)
[2024-07-08] MEDS: NORVASC 10 MG PO (08:02)
[2024-07-08] MEDS: ROXICODONE 2.5 MG PO ×2 (08:05→17:04)
[2024-07-08 08:22] LABS: Glucose - Point of Care 99 mg/dl (70-99)
--- NOTE | 2024-07-08 08:25 | PN.CDI ---
CDI
- -
CDI:
Physician Documentation Request
Admit Date: 07/05/24 22:39
Dear Doctor Nils,
Patient admitted for sepsis.
ER Physician Documentation: 'His Fischer catheter appears to be clogged and an exchange was performed by RNs at the bedside with rapid return of purulent/milky urine...Urinary tract infection'
07/07 Hospitalist PN: 'from [facility] Chronic Fischer...Septic shock, suspected urinary source'
Please clarify the relationship between these conditions:
Yes, UTI is related to/associated with/due to fischer catheter.
No, UTI is not related to/associated with/due to fischer catheter but it is due to ___. (Please specify)
Unable to determine
Use of terms such as suspected, likely, concern for, or probable (associated with a specific diagnosis that is being evaluated, monitored, or treated as if it exists) are acceptable and can be coded in the inpatient setting, when documented at the
time of discharge.
Thank you,
Alice Moscoso RN, BSN
CDI Specialist
Available via [place] text
Please use your independent medical judgment in providing your response.
--- NOTE | 2024-07-08 08:34 | PN.CDI ---
CDI
- -
CDI:
Physician Documentation Request
Admit Date: 07/05/24 22:39
Dear Doctor Nils,
Patient admitted with sepsis.
Medications:
Oxycodone HCl (Oxycodone 5 Mg Regular Release Tablet) 2.5 mg PO BID AT 0800,1700 JAVAD
Stop: 07/20/24 07:59
Last Admin: 07/08/24 08:05 Dose: 2.5 mg
Oxycodone HCl (Oxycodone 5 Mg Regular Release Tablet) 5 mg PO HS JAVAD
Stop: 07/20/24 00:41
Last Admin: 07/07/24 19:40 Dose: 5 mg
Oxycodone HCl (Oxycodone 10 Mg Regular Release Tablet) 10 mg PO BIDPRN PRN
PRN Reason: severe pains/breakthrough pain
Stop: 07/20/24 00:41
Last Admin: 07/06/24 14:16 Dose: 10 mg
If possible, please provide further specificity as outlined below:
Opioid dependence
Opioid use
Other
Use of terms such as suspected, likely, concern for, or probable (associated with a specific diagnosis that is being evaluated, monitored, or treated as if it exists) are acceptable and can be coded in the inpatient setting, when documented at the
time of discharge.
Thank you,
Alice Moscoso RN, BSN
CDI Specialist
Available via [place] text
Please use your independent medical judgment in providing your response.
--- NOTE | 2024-07-08 08:52 | PTCARENOTE ---
Pt AAOx 1 NSS at 79 ml/hr. Lungs are diminished . Pt took meds whole without incident Pt has a chronic fischer. Foams on ashley heels.
[2024-07-08] MEDS: NOVOLOG FLEXPEN-LOW RESISTANCE SC ×2 (09:04→17:36)
--- NOTE | 2024-07-08 11:14 | CM ---
Patient from [facility] with Hx colostomy with Dx Septic shock suspected urinary source, TME. Room air. Receiving IVF, IV Abx, Roxicodone prn. Cordon. Regular diet. Per nurse; confused, forgetful.
Extensive conversation with patient's daughter Zee;
daughter says patient has been conversant with family while here, and can make his needs known intermittently.
Zee is a nurse at [facility]. Her sister Yen is a travel nurse who is currently working in [place] however can return home to assist as needed. The family plans on taking him home after patient has had 3 bad SNF experiences, in which
his care needs were not met, and patient declined further while at the SNFs, including [facility].
Home Address: [address] [place] [id number] ([facility]).
Family at home address is , 2 daughters and 2 teenage grand-children. The house is a 2 story twin house with 5 outside steps and first floor setup. The 2 dtrs who are nurses & the have cared for him in the past.
Discussed that patient will need HH nurse for colostomy care, PT/OT- daughter agrees to HH agency in [facility] and has no VN preference. Zee needs a little time to swap out his hospital bed that is not working properly, and hoping for d/c -Sun.
Patient has w/c and RW in place. Suggested she obtain incontinent pads. Should consider air mattress.
Patient will need ostomy supplies for home and Zee would like to meet with ostomy nurse if possible---> messsage sent to KARINA Gracia Ostomy Nurse who will reach out to daughter.
Referrals placed for HH with agencies that service [facility], for SN/PT/OT and [employer].
Plan follow up VN referrals.
Plan follow up with daughter about hospital bed exchange and readiness for d/c.
Plan home with family with HH.
--- NOTE | 2024-07-08 11:22 | WOUNDNOTE ---
Addendum entered by Samia Haro RN 07/08/24 11:28:
Spoke to daughter. She said she does not need ostomy teaching, but would like help ordering supplies. This marketing writer explained that will help her order supplies and hospital will send her home with some supplies. Daughter agreeable to plan.
Original Note:
[facility] RN NOTE: Received TT from Marilynn MARISCAL. Plan is for discharge to home in 24-48 hours and daughter would like ostomy teaching. Called daughter Zee but mailbox full. Isa ostomy information left in room.
--- NOTE | 2024-07-08 11:35 | W.PN.HOSP.TC ---
Today's Communication/Plan
-
see a/p
Assessment / Plan
Assessment / Plan
Physical Exam
General: no acute distress, appears comfortable at this time
HEENT: moist mucous membrane
Pulm: Clear to auscultation b/l
Cardio: RRR, S1/S2
Abd:Soft, NT, ND, BS+, Colostomy+
: Fischer catheter with yellow urine
Skin: Warm, Dry
Neuro: AOx1 oriented to self only
Psych: calm
74M afib Eliquis CHF HTN HLD DM from [facility] Chronic Fischer Colostomy hx CVA w/ residual aphasia here for sepsis uti 2/2 fischer obstruction since replaced.
Septic shock, likely urinary source due to Fischer obstruction since replaced, lactate >4 since resolved
Catheter associated UTI
Blood Urine Cx's pos for Klebsiella follow sensitivities
Continue Zosyn
ROBERT with a baseline creatinine of 1.2
Fischer for decompression
IVF
trend Cr
Hyperkalemia
5.8 likely related to urinary obstruction since resolved
Metabolic acidosis likely secondary to renal dysfunction
Since improved though not resolved
Toxic metabolic encephalopathy in the likely setting of infection.
since improved though some confusion remains evident as per family
monitor
Acute Blood Loss Anemia
Significant Hematuria noted on Replacement Fischer since resolved
-Urology eval appreciated
-home Eliquis on hold for now
-1PRBC transfusion 07/07 Hgb trickled down to 7.1 subsequently improved with transfusion to 8.9
Paroxysmal AFIB
- Currently NSR
-Eliquis on hold as above
Chronic Pain, Opioid Dependence
Back pain
cont pain regimen
lidocaine patches 2 ordered for back
PT/OT appreciated SNF rehab family however prefers home with home services
Full Code
I spent a total of 50 minutes with the patient or on the floor. More than 50% of this time involved counseling and coordination of care.
Anticipated Discharge: 24 - 48 hours
Subjective/Interval History
-
Date of Service: July 08, 2024
No acute distress. Appears comfortable at this time. Reports back pain.
Objective Data
-
Labs:
Laboratory Results
07/08/24
04:48
WBC 19.8 H
Hgb 8.9 L D
Hct 25.2 L
Plt Count 166
Sodium 138
Potassium 3.6
Chloride 114 H
Carbon Dioxide 19 L
BUN 42 H
Creatinine 2.9 H
Glucose 102 H
Calcium 7.4 L
Vital Signs:
Vital Signs
Temp Pulse Resp BP Pulse Ox
98.5 F 75 16 146/59 97
07/08/24 11:23 07/08/24 10:00 07/08/24 10:00 07/08/24 10:00 07/08/24 09:13
I&O
07/07/24 07/08/24 07/09/24
06:59 06:59 06:59
Intake Total 1780 / 1780 3480 / 3480
Output Total 1000 / 1000 1700 / 1700
Balance 780 / 780 1780 / 1780
[2024-07-08 12:23] LABS: Glucose - Point of Care 198 mg/dl (70-99)
[2024-07-08] MEDS: LIDOCAINE 4% PATCH 2 PATCH TOPICAL (13:33)
[2024-07-08] MEDS: NOVOLOG FLEXPEN-LOW RESISTANCE 1 UNITS SC (13:33)
[2024-07-08 17:31] LABS: Glucose - Point of Care 99 mg/dl (70-99)
[2024-07-08] MEDS: ROXICODONE 10 MG PO (20:10)
[2024-07-08 22:10] LABS: Glucose - Point of Care 97 mg/dl (70-99)
[2024-07-08] MEDS: ROXICODONE 5 MG PO (22:35)
[2024-07-08] MEDS: REMERON 7.5 MG PO (22:35)
[2024-07-09] VITALS (11 sets, daily range): BP systolic 128–156; BP diastolic 51–68; BMI 28.3
[2024-07-09] MEDS: ZOSYN 50 IV ×3 (00:29→11:06)
--- NOTE | 2024-07-09 03:53 | PTCARENOTE ---
Pt having complaints of pain early in evening, pen medication given see (see mar). Pt having positive results from medication. Call coppola within reach. Assessment care and vitals as charted.
--- NOTE | 2024-07-09 05:46 | PTCARENOTE ---
Addendum entered by Mare Chu RN 07/09/24 06:06:
Pt rings for juice and tell pct ya 'can do the blood thing now'. Labs obtained. Pt had no other complaints at this time.
Addendum entered by Mare hCu RN 07/09/24 05:51:
Wound care also attempted, Pt refusing at this time. Daily weight obtained with fiber filled boots for safety on due to Pt becoming upset and combative.
Original Note:
Pt becoming agitated and combative when pct attempted to get labs. Per pct she awoke Pt and informed him that she needed to get labs work, Pt replied ok. Pt than pulled his arm away from pct and needle and began to yell. Therapeutic communication
and education attempted Pt did not want to hear anything and continued to yell and talk over RN and PCT. Pt bed alarm on, bed in lowest position and call coppola within reach. Will pass on to day shift RN Pt refusing labs at this time.
[2024-07-09 06:19] LABS: Hematocrit 25.8 % (39.0-52.0); Hemoglobin 8.9 g/dL (13.0-18.0); Mean Corp Hgb Conc. 34.5 g/dL (33.0-37.0); Mean Corpuscular Hgb 27.1 pg (27.0-31.0); Mean Corpuscular Volume 78.7 fL (80.0-94.0); Mean Platelet Volume 10.2 fL (7.4-10.4); Platelet Count 177 10^3/uL (130-400); Red Blood Cell Count 3.28 10^6/uL (4.70-6.10); Red Cell Dist. Width 17.6 % (11.5-14.5); White Blood Cell Count 16.8 10^3/uL (4.8-10.8)
[2024-07-09 06:42] LABS: Blood Urea Nitrogen 35 mg/dl (9-20); Calcium 7.9 mg/dl (8.4-10.2); Carbon Dioxide 23 mmol/L (22-30); Chloride 117 mmol/L (98-107); Estimated Creatinine Clearance 19 ml/min; Glucose 89 mg/dl (70-99); Phosphorus 3.1 mg/dl (2.5-4.5); Potassium 3.4 mmol/L (3.5-5.1); Sodium 143 mmol/L (135-145); eGFR 22.67
[2024-07-09 08:08] LABS: Glucose - Point of Care 94 mg/dl (70-99)
[2024-07-09] MEDS: LIDOCAINE 4% PATCH 2 PATCH TOPICAL (08:10)
[2024-07-09] MEDS: ROXICODONE 2.5 MG PO ×2 (08:11→16:32)
[2024-07-09] MEDS: NOVOLOG FLEXPEN-LOW RESISTANCE SC ×3 (08:12→17:42)
[2024-07-09] MEDS: PEPCID 20 MG PO (08:12)
[2024-07-09] MEDS: NORVASC 10 MG PO (08:12)
--- NOTE | 2024-07-09 09:14 | W.PN.HOSP.TC ---
Today's Communication/Plan
-
Downgrade to med/surg
IV abx switched to PO
check bladder renal US
cont IVF and monitor renal function
Assessment / Plan
Assessment / Plan
Physical Exam
General: no acute distress, appears comfortable at this time
HEENT: moist mucous membrane
Pulm: Clear to auscultation b/l
Cardio: RRR, S1/S2
Abd:Soft, NT, ND, BS+, Colostomy+
: Fischer catheter with yellow urine
Skin: Warm, Dry
Neuro: AOx1 oriented to self only
Psych: calm
74M afib Eliquis CHF HTN HLD DM from [facility] Chronic Fischer Colostomy hx CVA w/ residual aphasia here for sepsis uti 2/2 fischer obstruction since replaced.
Septic shock, likely urinary source due to Fischer obstruction since replaced, lactate >4 since resolved
Catheter associated UTI
Blood Urine Cx's pos for Klebsiella, sensitivities appreciated
Zosyn de-escalated to cefuroxime
ROBERT with a baseline creatinine of 1.2
Fischer for decompression
IVF
trend Cr, improvement slowing unclear reason, checking bladder renal US
Hyperkalemia
5.8 likely related to urinary obstruction since resolved
Metabolic acidosis likely secondary to renal dysfunction
Since improved though not resolved
Toxic metabolic encephalopathy in the likely setting of infection.
since improved though some confusion remains evident as per family
monitor
Acute Blood Loss Anemia
Significant Hematuria noted on Replacement Fischer since resolved (Hematuria likely exacerbated/associate with Eliquis use)
-Urology eval appreciated
-1PRBC transfusion 07/07 Hgb trickled down to 7.1 subsequently improved with transfusion to 8.9
-H&H stable, hematuria resolved, home Eliquis resumed
Paroxysmal AFIB
- Currently NSR
-cont Eliquis
Chronic Pain, Opioid Dependence
Back pain
cont pain regimen
lidocaine patches 2 ordered for back
hx DM
A1c 5.2 however study is inaccurate with recent blood transfusion
Consistently Euglycemic though requiring minimal to none insulin correction during stay
OK to dc routine FS and sliding scale
stage 3 to bilateral lateral heels
cont local wound care
PT/OT appreciated SNF rehab family however prefers home with home services
Full Code
Medically stable for downgrade to Med/surg
Called daughter Zee to provide update, no answer received and unable to leave message.
I spent a total of 45 minutes with the patient or on the floor. More than 50% of this time involved counseling and coordination of care.
Anticipated Discharge: 24 - 48 hours
Subjective/Interval History
-
Date of Service: July 09, 2024
No acute distress, appears comfortable at this time.
Objective Data
-
Labs:
Laboratory Results
07/09/24
06:02
WBC 16.8 H
Hgb 8.9 L
Hct 25.8 L
Plt Count 177
Sodium 143
Potassium 3.4 L
Chloride 117 H
Carbon Dioxide 23
BUN 35 H
Creatinine 2.8 H
Glucose 89
Calcium 7.9 L
Vital Signs:
Vital Signs
Temp Pulse Resp BP Pulse Ox
97.5 F 75 25 152/64 96
07/09/24 07:25 07/09/24 06:00 07/09/24 06:00 07/09/24 06:00 07/08/24 21:40
I&O
07/08/24 07/09/24 07/10/24
06:59 06:59 06:59
Intake Total 3480 / 3480 2110 / 2110
Output Total 1700 / 1700 1875 / 1875 100 / 100
Balance 1780 / 1780 235 / 235 -100 / -100
[2024-07-09] MEDS: NSS 1000 IV (11:03)
[2024-07-09] MEDS: ROXICODONE 10 MG PO (11:06)
[2024-07-09 11:34] LABS: Glucose - Point of Care 104 mg/dl (70-99)
--- NOTE | 2024-07-09 11:44 | PN.CDI ---
CDI
- -
CDI:
Physician Documentation Request
Admit Date: 07/05/24 22:39
Dear Doctor Nils,
Patient admitted for sepsis.
07/06 Update Note: 'It was reported, that when fischer catheter was exchanged in ED that pt had a mod-large amount of blood from penis and also Fischer bag...IMU RN stated pt gown on arrival had dried blood on it'
07/08 Hospitalist PN: 'Significant Hematuria noted on Replacement Fischer since resolved...-home Eliquis on hold for now -1PRBC transfusion 07/07 Hgb trickled down to 7.1 subsequently improved with transfusion to 8.9'
Please clarify the relationship between these conditions:
Yes, hematuria is related to/associated with/exacerbated Eliquis.
No, hematuria is not related to/associated with/exacerbated by Eliquis but it is due to ___. (Please specify)
Unable to determine
Use of terms such as suspected, likely, concern for, or probable (associated with a specific diagnosis that is being evaluated, monitored, or treated as if it exists) are acceptable and can be coded in the inpatient setting, when documented at the
time of discharge.
Thank you,
Alice Moscoso RN, BSN
CDI Specialist
Available via [place] text
Please use your independent medical judgment in providing your response.
--- NOTE | 2024-07-09 11:49 | PN.CDI ---
CDI
- -
CDI:
Physician Documentation Request
Admit Date: 07/05/24 22:39
Dear Doctor Nils,
Patient admitted for sepsis.
07/07 Wound Care Note: 'Patient admitted with stage 3 to bilateral lateral heels.'
Physician documentation of the type and location of wounds is required for compliant documentation. Based on the above clinical findings and your assessment, please provide the following in your progress note:
1. Location of the ulcer/wound, including laterality.
2. Type (etiology) of ulcer/wound:
- Diabetic ulcer
- Arterial (ischemic) ulcer
- Traumatic wound
- Venous stasis ulcer
- Pressure (decubitus) ulcer
- Non-healing surgical wound
- Other
- Unable to determine
3. For a non-pressure ulcer, please indicate the depth/severity:
- Limited to the breakdown of skin
- With fat layer exposed
- With necrosis of muscle
- With necrosis of bone
- Other
- Unable to determine
4. If a pressure ulcer, please also include the stage* of the ulcer:
- Stage 1 - Skin intact, non-blanchable redness
- Stage 2 - Partial thickness loss of dermis, includes intact or open blister
- Stage 3 - Full thickness tissue not including bone, tendon or muscle
- Stage 4 - Full thickness tissue loss, including exposed bone, tendon or muscle
- Unstageable - Full thickness loss in which the base of the ulcer is covered by slough (yellow, armenta, salinas, green or brown) and/or eschar (armenta, brown or black) in the wound bed.
- Unable to determine
Use of terms such as suspected, likely, concern for, or probable (associated with a specific diagnosis that is being evaluated, monitored, or treated as if it exists) are acceptable and can be coded in the inpatient setting, when documented at the
time of discharge.
Thank you,
Alice Moscoso RN, BSN
CDI Specialist
Available via [place] text
Please use your independent medical judgment in providing your response.
*Source: National Pressure Ulcer Advisory Panel (NPUAP)
[2024-07-09] MEDS: KCL 40 MEQ PO (12:39)
[2024-07-09 12:54] LABS: Glycohemoglobin (HgbA1c) 5.2 % (4.0-5.6)
--- NOTE | 2024-07-09 14:25 | PTCARENOTE ---
Pt received in bed @ 0700. Oriented to self. Confused but able to follow commands. Disfluent speech; Hx CVA. Chronic back pain. Scheduled and PRN Roxicodone administered. SaO2 96% on room air. Poor inspiratory effort. Colostomy in place, pink and
budded. Assist with feeds. Cordon catheter draining cloudy yellow with sediment. Heel boots and heel dressings in place. NSS @ 75ml/hr infusing. Pt downgraded to med/surg.
--- NOTE | 2024-07-09 14:30 | WOUNDNOTE ---
[facility] RN NOTE: TT with Marilynn MARISCAL regarding discharge needs for patient. Plan is for patient to go home with daughter, Zee. Patient will need air overlay or an air mattress due to poor mobility and high risk of developing pressure injuries. Patient
currently has bilateral stage 3 PI to heels. He should continue to wear his fiber filled boots. A few weeks worth of ostomy supplies were left at bedside for patient to bring home. A folder with information and where to order supplies was also left
at bedside. Discharge orders updated as well. Will continue to support discharge plan as needed.
[2024-07-09 17:02] LABS: Glucose - Point of Care 127 mg/dl (70-99)
--- NOTE | 2024-07-09 17:47 | CM ---
Patient from [facility] with Hx colostomy, chronic pain with Dx Septic shock suspected urinary source, TME. Room air. Receiving PO Abx. PT & OT 07/09; assist of 2, dependent for transfers, toileting and LE self care. Seen by wound care nurse.
Per nurse; confused, forgetful.
Spoke with patient's daughter Zee;
she contacted [facility] who provided patient's hospital bed and they were able to repair the bed today to working condition.
CM agreed to order air mattress through the same company for delivery to patient's home.
Daughter states patient's PCP is with [facility] in [facility]- specific provider unk.
Messages with KERRI Gracia nurse; re need for air overlay or an air mattress due to poor mobility and high risk of developing pressure injuries.
Spoke with [facility]/[employer] (ph [phone], fax [phone]); faxed order form & referral with demographics/home address, clinical info & wound care notes indicating med necessity for air mattress.
Spoke with [facility]; provided clinic info where patient receives his primary care. Referral accepted in [facility].
Plan follow up with [facility] re; air overlay/air mattress delivery.
Plan home with [facility] with air mattress, by ambulance.
[2024-07-09] MEDS: CEFTIN 250 MG PO (20:02)
[2024-07-09] MEDS: ELIQUIS 5 MG PO (20:02)
[2024-07-09] MEDS: REMERON 7.5 MG PO (21:28)
[2024-07-09] MEDS: ROXICODONE 5 MG PO (21:29)
[2024-07-10] MEDS: NSS 1000 IV ×2 (00:23→17:03)
[2024-07-10 05:59] LABS: Hematocrit 24.1 % (39.0-52.0); Hemoglobin 8.2 g/dL (13.0-18.0); Mean Corpuscular Hgb 27.2 pg (27.0-31.0); Mean Corpuscular Volume 79.8 fL (80.0-94.0); Mean Platelet Volume 10.2 fL (7.4-10.4); Platelet Count 160 10^3/uL (130-400); Red Blood Cell Count 3.02 10^6/uL (4.70-6.10); White Blood Cell Count 16.5 10^3/uL (4.8-10.8)
[2024-07-10 06:29] LABS: Blood Urea Nitrogen 28 mg/dl (9-20); Calcium 7.6 mg/dl (8.4-10.2); Carbon Dioxide 22 mmol/L (22-30); Chloride 118 mmol/L (98-107); Estimated Creatinine Clearance 19 ml/min; Glucose 85 mg/dl (70-99); Phosphorus 2.8 mg/dl (2.5-4.5); Potassium 3.7 mmol/L (3.5-5.1); Sodium 142 mmol/L (135-145); eGFR 23.68
[2024-07-10 07:31] VITALS: BP 185/75
[2024-07-10 07:48] LABS: Glucose - Point of Care 91 mg/dl (70-99)
[2024-07-10] MEDS: LIDOCAINE 4% PATCH 2 PATCH TOPICAL (08:02)
[2024-07-10] MEDS: NORVASC 10 MG PO (08:02)
[2024-07-10] MEDS: NOVOLOG FLEXPEN-LOW RESISTANCE SC ×3 (08:02→17:04)
[2024-07-10] MEDS: ROXICODONE 2.5 MG PO ×2 (08:02→17:04)
[2024-07-10] MEDS: CEFTIN 250 MG PO ×2 (08:03→19:50)
[2024-07-10] MEDS: ELIQUIS 5 MG PO ×2 (08:03→19:50)
--- NOTE | 2024-07-10 08:25 | W.PN.HOSP.TC ---
Today's Communication/Plan
-
see a/p
Assessment / Plan
Assessment / Plan
Physical Exam
General: no acute distress, appears comfortable at this time
HEENT: moist mucous membrane
Pulm: Clear to auscultation b/l
Cardio: RRR, S1/S2
Abd:Soft, NT, ND, BS+, Colostomy+
: Fischer catheter with yellow urine
Skin: Warm, Dry
Neuro: AOx1 oriented to self only
Psych: calm
74M afib Eliquis CHF HTN HLD DM from [facility] Chronic Fischer Colostomy hx CVA w/ residual aphasia here for sepsis uti 2/2 fischer obstruction since replaced.
Septic shock, likely urinary source due to Fischer obstruction since replaced, lactate >4 since resolved
Catheter associated UTI
Blood Urine Cx's pos for Klebsiella, sensitivities appreciated
Zosyn de-escalated to cefuroxime
ROBERT with a baseline creatinine of 1.2
Fischer for decompression
IVF
bladder renal us appreciated no acute abn's
Nephro eval requested, slowed improvement in kidney function
Hyperkalemia
5.8 likely related to urinary obstruction since resolved
Metabolic acidosis likely secondary to renal dysfunction
Since improved though not resolved
Toxic metabolic encephalopathy in the likely setting of infection.
since improved though some confusion remains evident as per family
monitor
Acute Blood Loss Anemia
Significant Hematuria noted on Replacement Fischer since resolved (Hematuria likely exacerbated/associate with Eliquis use)
-Urology eval appreciated
-1PRBC transfusion 07/07 Hgb trickled down to 7.1 subsequently improved with transfusion to 8.9
-H&H stable, hematuria resolved, home Eliquis resumed
Paroxysmal AFIB
- Currently NSR
-cont Eliquis
Chronic Pain, Opioid Dependence
Back pain
cont pain regimen
lidocaine patches 2 ordered for back
hx DM
A1c 5.2 however study is inaccurate with recent blood transfusion
Consistently Euglycemic though requiring minimal to none insulin correction during stay
OK to dc routine FS and sliding scale
Hypokalemia
monitor and replete as necessary
stage 3 to bilateral lateral heels
cont local wound care
PT/OT appreciated SNF rehab family however prefers home with home services
Full Code
Medically stable for downgrade to Med/surg
Called daughter Zee to provide update, no answer received, message left with call back number
I spent a total of 45 minutes with the patient or on the floor. More than 50% of this time involved counseling and coordination of care.
Anticipated Discharge: 24 - 48 hours
Subjective/Interval History
-
Date of Service: July 10, 2024
no acute distress sitting up comfortably in bed.
Objective Data
-
Labs:
Laboratory Results
07/10/24
05:38
WBC 16.5 H
Hgb 8.2 L
Hct 24.1 L
Plt Count 160
Sodium 142
Potassium 3.7
Chloride 118 H
Carbon Dioxide 22
BUN 28 H
Creatinine 2.7 H
Glucose 85
Calcium 7.6 L
Vital Signs:
Vital Signs
Temp Pulse Resp BP Pulse Ox
98.3 F 78 15 185/75 100
07/10/24 07:31 07/10/24 08:02 07/10/24 07:31 07/10/24 08:02 07/10/24 07:31
I&O
07/09/24 07/10/24 07/11/24
06:59 06:59 06:59
Intake Total 2109 / 2109
Output Total 1875 / 1875 1650 / 1650
Balance 235 / 235 -1650 / -1650
[2024-07-10 10:47] VITALS: BP 157/79
--- NOTE | 2024-07-10 11:42 | PN.CDI ---
CDI
- -
CDI:
Physician Documentation Request
Admit Date: 07/05/24 22:39
Dear Doctor Nils,
Patient admitted or sepsis.
07/09 Potassium level: 3.4
07/09 Potassium chloride 40 meq PO administered
Based on the above, could you clarify in the progress notes, the appropriate diagnosis, if significant, that supports the above abnormalities and additional evaluation, monitoring and/or treatment rendered:
Hypokalemia
Abnormal lab value insignificant
Other
Use of terms such as suspected, likely, concern for, or probable (associated with a specific diagnosis that is being evaluated, monitored, or treated as if it exists) are acceptable and can be coded in the inpatient setting, when documented at the
time of discharge.
Thank you,
Alice Moscoso RN, BSN
CDI Specialist
Available via [place] text
Please use your independent medical judgment in providing your response.
[2024-07-10 11:45] LABS: Glucose - Point of Care 92 mg/dl (70-99)
[2024-07-10] MEDS: ROXICODONE 10 MG PO (12:15)
--- NOTE | 2024-07-10 12:49 | CM ---
Patient from [facility] with Hx colostomy, chronic pain with Dx Septic shock suspected urinary source, TME. Room air. Receiving IVF, PO Abx. PT & OT 07/09; assist of 2, dependent for transfers, toileting and LE self care. Seen by wound care
nurse. Per nurse; confused, forgetful.
Message from Dr Wray; Possible dc tomorrow. Concern his kidney function improvement has slowed. Requested nephrology to evaluate.
Received fax from [employer]; they do not have an air mattress but can supply a gel overlay mattress.
Spoke with [facility] [employer] (ph [phone], fax [phone]); re-faxed script for gel overlay mattress. They received the updated script and can deliver to patient's home tomorrow.
Spoke with patient's daughter Zee; provided update re; gel overlay to be delivered to home tomorrow.
Discussed patient's current mobility as per PT/OT; she is declining preston lift at this time.
Daughter aware [facility] is setup.
Discussed applying for MA and then the Waiver program through [facility] - Zee says some family/friends would like to be his paid caregivers.
Daughter aware patient not medically ready for d/c today.
Messages with [facility]; they are trying to have PCP confirm signing orders. She has trying to connect with daughter.
Plan home with [facility] with gel overlay mattress, by ambulance.
--- NOTE | 2024-07-10 13:53 | W.CON.NEPH ---
Consultation
-
Date/Time Consultation Requested: 07/10/2024 12pm
Date/Time Consultation Performed: 07/10/2024 1 PM
Requesting Provider: Dr. Wray
Performing Provider: Dr. Lopez
Reason for Consultation: ROBERT
Medical History
-
Chief Complaint: Confusion
History of Present Illness:
This is a 74-year-old gentleman who has chronic indwelling Cordon catheter and resides at a senior care. The catheter was exchanged 2 days prior to admission at the senior care but was apparently a difficult exchange. Over time the patient became
more more lethargic and then developed a fever and hypotension. He was sent to the emergency room for evaluation. Cordon catheter was felt to be malfunctioning and was exchanged in the emergency room with return of purulent urine. His creatinine
at the time of admission was elevated at 3.9 from a baseline of 1.2 on June 23, 2024. ALT has begun to improve now down to 2.6, his rate of improvement has been very slow and there is concern that another issue is at play for his renal function.
He also has hypertension on a monotherapy regimen which has been stable as well as significant pain in his heels and feet which is treated with narcotics.
Past Medical History
Past Medical History: Reports CHF, CVA, Dementia, HTN and IDDM
Additional Past Medical History:
Recent history of C. difficile
Chronic indwelling urinary cath pending outpatient urology follow-up
Past Surgical History: Reports Bowel Resection (End colostomy)
Social History
Tobacco: Non-Smoker
Alcohol: None
Family History
Family History: Not Pertinent
Allergies / Home Medications
Allergy/AdvReac Type Severity Reaction Status Date / Time
shellfish derived Allergy Unknown Verified 07/05/24 18:59
�Medication �Instructions �Recorded �Confirmed �Type
acetaminophen 325 mg tablet 650 mg PO Q6HPRN PRN mild 07/02/24 07/05/24 History
(Tylenol) pain/fever
amlodipine 10 mg tablet (Norvasc) 10 mg PO DAILY Blood Pressure 07/02/24 07/05/24 History
apixaban 5 mg tablet (Eliquis) 5 mg PO BID Blood Clot 07/02/24 07/05/24 History
Prevention/Tx
balsam brandon-castor oil topical 1 applic topical QPM coccyx 07/02/24 07/05/24 History
ointment (Venelex topical ointment)
bisacodyl 10 mg rectal suppository 10 mg [place] DAILYPRN PRN if no bm 07/02/24 07/05/24 History
(Dulcolax (bisacodyl)) after mom
famotidine 20 mg tablet (Pepcid) 20 mg PO DAILY Gastrointestinal 07/02/24 07/05/24 History
Issue
hydralazine 50 mg tablet 50 mg PO TID Blood Pressure 07/02/24 07/05/24 History
insulin lispro 100 unit/mL 1 sliding scale dose SC ACHS 07/02/24 07/05/24 History
subcutaneous solution Diabetes
magnesium hydroxide 400 mg/5 mL 2,400 mg PO HSPRN PRN if no bm by 07/02/24 07/05/24 History
oral suspension (Milk of Magnesia) 3rd day
mirtazapine 7.5 mg tablet 7.5 mg PO HS depression/sleep 07/02/24 07/05/24 History
ondansetron HCl 4 mg tablet 4 mg PO Q8HPRN PRN nausea 07/02/24 07/05/24 History
oxycodone 5 mg tablet 2.5 mg PO BID Pain 07/02/24 07/05/24 History
oxycodone 5 mg tablet 5 mg PO HS Pain 07/02/24 07/05/24 History
oxycodone 5 mg tablet 10 mg PO BIDPRN PRN severe 07/02/24 07/05/24 History
pain/breakthrough pain
sertraline 25 mg tablet 25 mg PO DAILY depression/anxiety 07/02/24 07/05/24 History
glucagon HCl 1 mg solution for 1 mg SC [id number] PRN symptomatic 07/05/24 07/05/24 History
injection (Glucagon (HCl) hypoglycemia
Emergency Kit)
potassium chloride 10 mEq 20 meq PO DAILY Electrolyte 07/05/24 07/05/24 History
tablet,extended release(part/cryst) Repletion
Review of Systems
-
Heel and foot pain
All other systems: Negative unless noted
Physical Exam
Vital Signs
Vital Signs
Temp Pulse Resp BP Pulse Ox
98.3 F 81 15 157/79 100
07/10/24 07:31 07/10/24 10:47 07/10/24 07:31 07/10/24 10:47 07/10/24 07:31
Lab Results
WBC 16.5 10^3/uL (4.8-10.8) H 07/10/24 05:38
RBC 3.02 10^6/uL (4.70-6.10) L 07/10/24 05:38
Hgb 8.2 g/dL (13.0-18.0) L 07/10/24 05:38
Hct 24.1 % (39.0-52.0) L 07/10/24 05:38
Plt Count 160 10^3/uL (130-400) 07/10/24 05:38
Sodium 142 mmol/L (135-145) 07/10/24 05:38
Potassium 3.7 mmol/L (3.5-5.1) 07/10/24 05:38
Chloride 118 mmol/L (98-107) H 07/10/24 05:38
Carbon Dioxide 22 mmol/L (22-30) 07/10/24 05:38
BUN 28 mg/dl (9-20) H 07/10/24 05:38
Creatinine 2.7 mg/dL (0.7-1.3) H 07/10/24 05:38
eGFR 23.68 07/10/24 05:38
Glucose 85 mg/dl (70-99) 07/10/24 05:38
Calcium 7.6 mg/dl (8.4-10.2) L 07/10/24 05:38
Phosphorus 2.8 mg/dl (2.5-4.5) 07/10/24 05:38
Albumin 3.1 g/dl (3.5-5.0) L 07/05/24 19:11
CT abdomen pelvis without contrast 07/05/2024
IMPRESSION:
Cordon catheter is present within collapsed bladder. The bladder wall appears diffusely thickened, and suggests the possibility of cystitis. There are multiple calcifications in the region of the posterior bladder wall, which could represent
calcification lateral wall or within the bladder lumen adjacent to the thickened wall.
There is a right anterior bladder diverticulum which contains multiple calculi.
No evidence for nephrolithiasis. Bilateral perinephric stranding, and please correlate clinically to exclude an ascending infection/neuritis/pyelonephritis.
Bilateral rounded renal masses, unable to be characterized on the basis of attenuation value measurement. Differential considerations include bilateral adrenal adenomas, metastatic disease, and less likely granulomatous disease. Bilateral adrenal
cortical carcinoma is would be unusual, although still considered as a possibility. If any previous examinations that would include the adrenal glands could be obtained, comparison should be made. No comparison examinations can be obtained,
follow-up short-term CT would be advised in 2-3 months.
No evidence of bowel obstruction. There is a right lower abdominal wall colostomy.
Compression deformities of T12 and L1 vertebral bodies, which morphologically appear to be acute to subacute. Please correlate with localized symptoms.
Physical Exam
Patient is awake alert oriented and in no distress. Mood and affect were pleasant, insight and judgment were fair. Pupils are equal round and reactive to light, extraocular movements are intact, sclera were anicteric. Hearing was normal, ears and
nose are intact. Oropharynx was clear. Neck was supple with trachea midline and no thyromegaly. Heart was regular rate and rhythm without rubs. Lower extremities without edema. Lungs were clear to auscultation bilaterally and with normal
excursion. Abdomen was soft, nontender, with normal active bowel sounds, and no hepatosplenomegaly. Skin was without rash and with normal turgor. Colostomy noted, Cordon catheter noted
Data Reviewed
-
Ultrasound: Report Reviewed by me (Renal ultrasound 07/10/2024 right kidney 12.8 cm, left kidney 12.2 cm, no hydronephrosis)
Labs: Labs Reviewed by me
Old Records: Reviewed
Assessment/Plan
-
Assessment
Sepsis from Cordon obstruction
Chronic Cordon
ROBERT
Colostomy
Diabetes mellitus type 2
Heel ulcers
Chronic pain
Plan
ROBERT is slowly improving
Follow BMP
No obstructive issues
Repeat urinalysis
Check urine eosinophils
[2024-07-10 14:48] VITALS: BP 152/72
[2024-07-10 16:06] LABS: Urine Albumin 3+ (Neg - Trace); Urine Bilirubin Negative (Negative); Urine Character Cloudy (Clear); Urine Glucose Negative (Negative); Urine Ketone Negative (Negative); Urine Leukocyte 3+ (Negative); Urine Nitrite Negative (Negative); Urine Occult Blood 4+ (Negative); Urine Urobilinogen Negative (Neg - 1+)
[2024-07-10 16:18] LABS: Urine Color Straw
[2024-07-10 16:51] LABS: Glucose - Point of Care 85 mg/dl (70-99)
[2024-07-10 17:13] LABS: Urine Squamous Cell 0-2 /LPF (Few); Urine White Cell >100 /HPF (0-5)
[2024-07-10 17:14] LABS: Urine Bacteria Moderate (Negative); Urine Yeast Moderate (Negative)
[2024-07-10 17:53] LABS: Body Fluid for Eosinophils No Eosinophils seen
[2024-07-10] MEDS: ROXICODONE 5 MG PO (21:20)
[2024-07-10] MEDS: REMERON 7.5 MG PO (21:20)
[2024-07-10 21:34] LABS: Glucose - Point of Care 139 mg/dl (70-99)
[2024-07-10 23:00] VITALS: BP 160/65
[2024-07-11] MEDS: NSS 1000 IV ×2 (05:15→18:40)
[2024-07-11 05:37] LABS: Hematocrit 25.3 % (39.0-52.0); Hemoglobin 8.7 g/dL (13.0-18.0); Mean Corp Hgb Conc. 34.4 g/dL (33.0-37.0); Mean Corpuscular Hgb 27.6 pg (27.0-31.0); Mean Corpuscular Volume 80.3 fL (80.0-94.0); Mean Platelet Volume 9.9 fL (7.4-10.4); Platelet Count 172 10^3/uL (130-400); Red Blood Cell Count 3.15 10^6/uL (4.70-6.10); Red Cell Dist. Width 18.3 % (11.5-14.5); White Blood Cell Count 15.9 10^3/uL (4.8-10.8)
[2024-07-11 06:02] LABS: Blood Urea Nitrogen 23 mg/dl (9-20); Calcium 7.8 mg/dl (8.4-10.2); Carbon Dioxide 24 mmol/L (22-30); Chloride 118 mmol/L (98-107); Estimated Creatinine Clearance 20 ml/min; Glucose 90 mg/dl (70-99); Magnesium 1.8 mg/dl (1.6-2.3); Phosphorus 2.7 mg/dl (2.5-4.5); Potassium 3.9 mmol/L (3.5-5.1); Sodium 142 mmol/L (135-145); eGFR 24.78
[2024-07-11 07:21] VITALS: BP 164/73
[2024-07-11] MEDS: NORVASC 10 MG PO (08:36)
[2024-07-11] MEDS: ELIQUIS 5 MG PO ×2 (08:36→21:21)
[2024-07-11] MEDS: TYLENOL 650 MG PO ×2 (08:36→17:07)
[2024-07-11] MEDS: CEFTIN 250 MG PO ×2 (08:36→21:21)
[2024-07-11] MEDS: ROXICODONE 2.5 MG PO ×2 (08:36→17:07)
[2024-07-11] MEDS: LIDOCAINE 4% PATCH 2 PATCH TOPICAL (08:37)
[2024-07-11 08:39] VITALS: BMI 28.0
--- NOTE | 2024-07-11 08:50 | W.PN.HOSP.TC ---
Today's Communication/Plan
-
Cont IVF
abx
wound care
PT/OT
Assessment / Plan
Assessment / Plan
Physical Exam
General: no acute distress, appears comfortable at this time
HEENT: moist mucous membrane
Pulm: Clear to auscultation b/l
Cardio: RRR, S1/S2
Abd:Soft, NT, ND, BS+, Colostomy+
: Fischer catheter with yellow urine
Skin: Warm, Dry
Neuro: AOx1 oriented to self only
Psych: calm
74M afib Eliquis CHF HTN HLD DM from [facility] Chronic Fischer Colostomy hx CVA w/ residual aphasia here for sepsis uti 2/2 fischer obstruction since replaced.
Septic shock, likely urinary source due to Fischer obstruction since replaced, lactate >4 since resolved
Catheter associated UTI
Blood Urine Cx's pos for Klebsiella, sensitivities appreciated
Zosyn de-escalated to cefuroxime 07/12 last day for abx to complete total 7 days treatment
ROBERT with a baseline creatinine of 1.2
Fischer for decompression
IVF
bladder renal us appreciated no acute abn's
Nephro eval appreciated
Hyperkalemia
5.8 likely related to urinary obstruction since resolved
Metabolic acidosis likely secondary to renal dysfunction
Since improved though not resolved
Toxic metabolic encephalopathy in the likely setting of infection.
since improved
Acute Blood Loss Anemia
Significant Hematuria noted on Replacement Fischer since resolved (Hematuria likely exacerbated/associate with Eliquis use)
-Urology eval appreciated
-1PRBC transfusion 07/07 Hgb trickled down to 7.1 subsequently improved with transfusion to 8.9
-H&H stable, hematuria resolved, home Eliquis resumed
Paroxysmal AFIB
- Currently NSR
-cont Eliquis
Chronic Pain, Opioid Dependence
Back pain
cont pain regimen
lidocaine patches 2 ordered for back
hx DM
A1c 5.2 however study is inaccurate with recent blood transfusion
Consistently Euglycemic though requiring minimal to none insulin correction during stay
OK to dc routine FS and sliding scale
Hypokalemia
monitor and replete as necessary
stage 3 to bilateral lateral heels
cont local wound care
PT/OT appreciated SNF rehab family however prefers home with home services
Full Code
Called daughter Zee to provide update, no answer received, message left with call back number
I spent a total of 45 minutes with the patient or on the floor. More than 50% of this time involved counseling and coordination of care.
Anticipated Discharge: 24 - 48 hours
Subjective/Interval History
-
Date of Service: July 11, 2024
No acute distress. Appears comfortable at this time.
Objective Data
-
Labs:
Laboratory Results
07/11/24
05:12
WBC 15.9 H
Hgb 8.7 L
Hct 25.3 L
Plt Count 172
Sodium 142
Potassium 3.9
Chloride 118 H
Carbon Dioxide 24
BUN 23 H
Creatinine 2.6 H
Glucose 90
Calcium 7.8 L
Vital Signs:
Vital Signs
Temp Pulse Resp BP Pulse Ox
97.9 F 76 18 164/73 100
07/11/24 07:21 07/11/24 08:36 07/11/24 07:21 07/11/24 08:36 07/11/24 07:21
I&O
07/10/24 07/11/24 07/12/24
06:59 06:59 06:59
Intake Total 1100 / 1100
Output Total 1650 / 1650 3050 / 3050
Balance -1650 / -1650 -1950 / -1950
[2024-07-11 11:03] VITALS: BP 160/64
--- NOTE | 2024-07-11 12:07 | W.PN.NEPH.PH ---
Today's Communication / Plan
-
Follow BMP
Holding antihypertensives
Assessment/Plan
-
Assessment
Sepsis from Cordon obstruction
Chronic Cordon
ROBERT
Colostomy
Diabetes mellitus type 2
Heel ulcers
Chronic pain
Plan
ROBERT is slowly improving,now 2.6 and nonoliguric 2700
Follow BMP
Hemodynamically state
No obstructive issues
Repeat urinalysis:filthy
Check urine eosinophils: negative
-
-
Date of Service: July 11, 2024
CC / HPI / ROS
-
Chief Complaint:
ROBERT
History of Present Illness:
Hemodynamically stable off antihypertensives
Creatinine down to 2.6
Remains on oral Ceftin for urosepsis
Review of Systems:
Nonoliguric via Cordon
Resting comfortably
No fevers
Labs
-
Labs:
WBC 15.9 10^3/uL (4.8-10.8) H 07/11/24 05:12
RBC 3.15 10^6/uL (4.70-6.10) L 07/11/24 05:12
Hgb 8.7 g/dL (13.0-18.0) L 07/11/24 05:12
Hct 25.3 % (39.0-52.0) L 07/11/24 05:12
Plt Count 172 10^3/uL (130-400) 07/11/24 05:12
Sodium 142 mmol/L (135-145) 07/11/24 05:12
Potassium 3.9 mmol/L (3.5-5.1) 07/11/24 05:12
Chloride 118 mmol/L (98-107) H 07/11/24 05:12
Carbon Dioxide 24 mmol/L (22-30) 07/11/24 05:12
BUN 23 mg/dl (9-20) H 07/11/24 05:12
Creatinine 2.6 mg/dL (0.7-1.3) H 07/11/24 05:12
eGFR 24.78 07/11/24 05:12
Glucose 90 mg/dl (70-99) 07/11/24 05:12
Calcium 7.8 mg/dl (8.4-10.2) L 07/11/24 05:12
Phosphorus 2.7 mg/dl (2.5-4.5) 07/11/24 05:12
Albumin 3.1 g/dl (3.5-5.0) L 07/05/24 19:11
Physical Exam
-
Vital Signs:
Vital Signs
Temp Pulse Resp BP Pulse Ox
97.9 F 76 18 160/64 100
07/11/24 07:21 07/11/24 11:03 07/11/24 07:21 07/11/24 11:03 07/11/24 07:21
Cardiovascular:: Regular rate and rhythm
Respiratory:: Bilateral: CTA
Lung Excursion:: Normal
Abdomen:: Nontender and Soft
Bowel Sounds:: Normal
Extremity Edema:: None: Bilateral:
Cordon Catheter: Yes
Other Findings::
General: Not oriented to time or place
[2024-07-11] MEDS: ROXICODONE 10 MG PO (13:30)
[2024-07-11 14:42] VITALS: BP 150/62; PULSE 74; O2SAT 100
[2024-07-11 14:51] VITALS: BP 150/62
--- NOTE | 2024-07-11 17:00 | CM ---
Patient daughter has not responded to phone calls from [facility] to discuss need for PCP appointment. the PCP doctor has indicated that they will not complete orders until he is seen. [facility] continue to call patient family. Please confirm PCP follow
up. CM will continue to follow for discharge planning needs.
Plan; home with [facility] to follow pending PCP orders.
[2024-07-11] MEDS: REMERON 7.5 MG PO (21:22)
[2024-07-11] MEDS: ROXICODONE 5 MG PO (22:17)
[2024-07-11 23:53] VITALS: BP 152/67
[2024-07-12 07:02] LABS: Hemoglobin 8.5 g/dL (13.0-18.0); Mean Corpuscular Hgb 27.3 pg (27.0-31.0); Mean Corpuscular Volume 80.4 fL (80.0-94.0); Mean Platelet Volume 10.2 fL (7.4-10.4); Platelet Count 193 10^3/uL (130-400); Red Blood Cell Count 3.11 10^6/uL (4.70-6.10); Red Cell Dist. Width 18.3 % (11.5-14.5); White Blood Cell Count 13.2 10^3/uL (4.8-10.8)
[2024-07-12 07:27] LABS: Blood Urea Nitrogen 19 mg/dl (9-20); Calcium 7.7 mg/dl (8.4-10.2); Carbon Dioxide 22 mmol/L (22-30); Chloride 117 mmol/L (98-107); Estimated Creatinine Clearance 24 ml/min; Glucose 75 mg/dl (70-99); Magnesium 1.8 mg/dl (1.6-2.3); Phosphorus 3.1 mg/dl (2.5-4.5); Potassium 4.1 mmol/L (3.5-5.1); Sodium 144 mmol/L (135-145); eGFR 30.28
[2024-07-12 07:28] VITALS: BP 117/70
[2024-07-12] MEDS: LIDOCAINE 4% PATCH 2 PATCH TOPICAL (08:52)
[2024-07-12] MEDS: NORVASC 10 MG PO (08:52)
[2024-07-12] MEDS: CEFTIN 250 MG PO ×2 (08:52→20:16)
[2024-07-12] MEDS: ELIQUIS 5 MG PO ×2 (08:52→20:16)
[2024-07-12] MEDS: ROXICODONE 2.5 MG PO ×2 (08:53→17:29)
[2024-07-12] MEDS: NSS 1000 IV (10:13)
--- NOTE | 2024-07-12 11:31 | W.PN.NEPH.PH ---
Today's Communication / Plan
-
Kidney function continues to improve
Follow BMP
Maintain chronic Cordon
Assessment/Plan
-
Assessment
Sepsis from Cordon obstruction
Chronic Cordon
ROBERT
Colostomy
Diabetes mellitus type 2
Heel ulcers
Chronic pain
Plan
ROBERT is slowly improving,now down to 2.2 and nonoliguric 2299
Follow BMP
Hemodynamically stable
No obstructive issues
Repeat urinalysis:filthy
Check urine eosinophils: negative
-
-
Date of Service: July 12, 2024
CC / HPI / ROS
-
Chief Complaint:
ORBERT
History of Present Illness:
Hemodynamically stable off antihypertensives
Creatinine down to 2.2
Remains on oral Ceftin for urosepsis
Review of Systems:
Nonoliguric via Cordon
Resting comfortably
No fevers
Labs
-
Labs:
WBC 13.2 10^3/uL (4.8-10.8) H 07/12/24 06:24
RBC 3.11 10^6/uL (4.70-6.10) L 07/12/24 06:24
Hgb 8.5 g/dL (13.0-18.0) L 07/12/24 06:24
Hct 25.0 % (39.0-52.0) L 07/12/24 06:24
Plt Count 193 10^3/uL (130-400) 07/12/24 06:24
Sodium 144 mmol/L (135-145) 07/12/24 06:24
Potassium 4.1 mmol/L (3.5-5.1) 07/12/24 06:24
Chloride 117 mmol/L (98-107) H 07/12/24 06:24
Carbon Dioxide 22 mmol/L (22-30) 07/12/24 06:24
BUN 19 mg/dl (9-20) 07/12/24 06:24
Creatinine 2.2 mg/dL (0.7-1.3) H 07/12/24 06:24
eGFR 30.28 07/12/24 06:24
Glucose 75 mg/dl (70-99) 07/12/24 06:24
Calcium 7.7 mg/dl (8.4-10.2) L 07/12/24 06:24
Phosphorus 3.1 mg/dl (2.5-4.5) 07/12/24 06:24
Albumin 3.1 g/dl (3.5-5.0) L 07/05/24 19:11
Physical Exam
-
Vital Signs:
Vital Signs
Temp Pulse Resp BP Pulse Ox
97.7 F 76 16 117/70 100
07/12/24 07:28 07/12/24 08:52 07/12/24 07:28 07/12/24 08:52 07/12/24 07:28
Cardiovascular:: Regular rate and rhythm
Respiratory:: Bilateral: CTA
Lung Excursion:: Normal
Abdomen:: Nontender and Soft
Bowel Sounds:: Normal
Extremity Edema:: None: Bilateral:
Cordon Catheter: Yes
Other Findings::
General: Not oriented to time or place
--- NOTE | 2024-07-12 14:14 | W.PN.HOSP.TC ---
Today's Communication/Plan
-
see a/p
Assessment / Plan
Assessment / Plan
Physical Exam
General: no acute distress, appears comfortable at this time
HEENT: moist mucous membrane
Pulm: Clear to auscultation b/l
Cardio: RRR, S1/S2
Abd:Soft, NT, ND, BS+, Colostomy+
: Cordon catheter with yellow urine
Skin: Warm, Dry
Neuro: AOx1 oriented to self only
Psych: calm
74M afib Eliquis CHF HTN HLD DM hip fx repair Feb 2024 hospital course complicated with colon perforation requiring colostomy and Cordon, hx CVA 2021 w/ residual aphasia presents from [place] for sepsis uti 2/2 Cordon obstruction since replaced.
Per daughter, patient was functioning independently up until Feb 2024 hospitalization.
Septic shock, likely urinary source due to Cordon obstruction since replaced, lactate >4 since resolved
Catheter associated UTI
Blood Urine Cx's pos for Klebsiella, sensitivities appreciated
Zosyn de-escalated to cefuroxime 07/12 last day for abx to complete total 7 days treatment
ROBERT with a baseline creatinine of 1.2
Cordon for decompression
IVF
bladder renal us appreciated no acute abn's
Nephro eval appreciated
Cr improving, may consider trial of Void once Cr is closer to baseline
Hyperkalemia
5.8 likely related to urinary obstruction since resolved
Metabolic acidosis likely secondary to renal dysfunction
Since improved though not resolved
Toxic metabolic encephalopathy in the likely setting of infection.
since improved
Acute Blood Loss Anemia
Significant Hematuria noted on Replacement Cordon since resolved (Hematuria likely exacerbated/associate with Eliquis use)
-Urology eval appreciated
-1PRBC transfusion 07/07 Hgb trickled down to 7.1 subsequently improved with transfusion to 8.9
-H&H stable, hematuria resolved, home Eliquis resumed
Paroxysmal AFIB
- Currently NSR
-cont Eliquis
Chronic Pain, Opioid Dependence
Back pain
Hx hip fracture repair (per daughter also RN reports patient's functional decline started in Feb with hip fx repair hospital course complicated with perforated colon requiring colostomy and Cordon placement)
cont pain regimen
lidocaine patches 2 ordered for back
hx DM
A1c 5.2 however study is inaccurate with recent blood transfusion
Consistently Euglycemic though requiring minimal to none insulin correction during stay
OK to dc routine FS and sliding scale
Hypokalemia
monitor and replete as necessary
stage 3 to bilateral lateral heels
cont local wound care
PT/OT appreciated SNF rehab family however prefers home with home services
Full Code
discussed with patient and Daughter Zee who reports hospital bed delivery remains pending
I spent a total of 40 minutes with the patient or on the floor. More than 50% of this time involved counseling and coordination of care.
Anticipated Discharge: 24 - 48 hours
Subjective/Interval History
-
Date of Service: July 12, 2024
no acute distress, appears comfortable at this time. Denies new acute issues.
Objective Data
-
Labs:
Laboratory Results
07/12/24
06:24
WBC 13.2 H
Hgb 8.5 L
Hct 25.0 L
Plt Count 193
Sodium 144
Potassium 4.1
Chloride 117 H
Carbon Dioxide 22
BUN 19
Creatinine 2.2 H
Glucose 75
Calcium 7.7 L
Vital Signs:
Vital Signs
Temp Pulse Resp BP Pulse Ox
97.7 F 76 16 117/70 100
07/12/24 07:28 07/12/24 08:52 07/12/24 07:28 07/12/24 08:52 07/12/24 07:28
I&O
07/11/24 07/12/2407/13/25
06:59 06:59 06:59
Intake Total 1100 / 1100 1180 / 1180
Output Total 3050 / 3050 2550 / 2550
Balance -1949 / -1950 -1370 / -1370
[2024-07-12 15:12] VITALS: BP 156/75
[2024-07-12 20:25] VITALS: BP 162/71
[2024-07-12] MEDS: SENOKOT-S 1 TABLET PO (20:29)
[2024-07-12] MEDS: TYLENOL 650 MG PO (20:29)
[2024-07-12] MEDS: ROXICODONE 5 MG PO (22:09)
[2024-07-12] MEDS: REMERON 7.5 MG PO (22:09)
[2024-07-12 23:00] VITALS: BP 141/95
[2024-07-12 23:12] VITALS: BP 168/74
[2024-07-13] MEDS: NSS 1000 IV ×2 (05:59→14:09)
[2024-07-13 06:00] VITALS: BMI 27.9
[2024-07-13 06:18] LABS: Hematocrit 25.3 % (39.0-52.0); Hemoglobin 8.7 g/dL (13.0-18.0); Mean Corp Hgb Conc. 34.4 g/dL (33.0-37.0); Mean Corpuscular Hgb 27.5 pg (27.0-31.0); Mean Corpuscular Volume 80.1 fL (80.0-94.0); Mean Platelet Volume 9.9 fL (7.4-10.4); Platelet Count 201 10^3/uL (130-400); Red Blood Cell Count 3.16 10^6/uL (4.70-6.10); Red Cell Dist. Width 18.1 % (11.5-14.5); White Blood Cell Count 12.7 10^3/uL (4.8-10.8)
[2024-07-13 06:37] LABS: Blood Urea Nitrogen 15 mg/dl (9-20); Calcium 7.9 mg/dl (8.4-10.2); Carbon Dioxide 24 mmol/L (22-30); Chloride 116 mmol/L (98-107); Estimated Creatinine Clearance 24 ml/min; Glucose 86 mg/dl (70-99); Magnesium 1.7 mg/dl (1.6-2.3); Sodium 143 mmol/L (135-145); eGFR 30.28
[2024-07-13 07:20] VITALS: BP 156/65
--- NOTE | 2024-07-13 07:31 | W.PN.HOSP.TC ---
Today's Communication/Plan
-
IVF support
abx completed, monitor off
trend wbc
monitor renal function
wound care
discharge planning.
Assessment / Plan
Assessment / Plan
Physical Exam
General: no acute distress, appears comfortable at this time
HEENT: moist mucous membrane
Pulm: Clear to auscultation b/l
Cardio: RRR, S1/S2
Abd:Soft, NT, ND, BS+, Colostomy+
: Cordon catheter with yellow urine
Skin: Warm, Dry
Neuro: AOx1 oriented to self only
Psych: calm
74M afib Eliquis CHF HTN HLD DM hip fx repair Feb 2024 hospital course complicated with colon perforation requiring colostomy and Cordon, hx CVA 2021 w/ residual aphasia presents from [place] [facility] for sepsis uti 2/2 Cordon obstruction since replaced.
Per daughter, patient was functioning independently up until Feb 2024 hospitalization.
Septic shock, likely urinary source due to Cordon obstruction since replaced, lactate >4 since resolved
Catheter associated UTI
Persistent Leukocytosis, trend
Blood Urine Cx's pos for Klebsiella, sensitivities appreciated
Zosyn de-escalated to cefuroxime, completed total 7 days abx treatment, monitor off
ROBERT with a baseline creatinine of 1.2
Cordon for decompression
IVF
bladder renal us appreciated no acute abn's
Nephro eval appreciated
Cr improving, may consider trial of Void once Cr is closer to baseline
Hyperkalemia
5.8 likely related to urinary obstruction since resolved
Metabolic acidosis likely secondary to renal dysfunction
Since improved though not resolved
Toxic metabolic encephalopathy in the likely setting of infection.
since improved
Acute Blood Loss Anemia
Significant Hematuria noted on Replacement Cordon since resolved (Hematuria likely exacerbated/associate with Eliquis use)
-Urology eval appreciated
-1PRBC transfusion 07/07 Hgb trickled down to 7.1 subsequently improved with transfusion to 8.9
-H&H stable, hematuria resolved, home Eliquis resumed
Paroxysmal AFIB
- Currently NSR
-cont Eliquis
Chronic Pain, Opioid Dependence
Back pain
Hx hip fracture repair (per daughter also RN reports patient's functional decline started in Feb with hip fx repair hospital course complicated with perforated colon requiring colostomy and Cordon placement)
cont pain regimen
lidocaine patches 2 ordered for back
hx DM
A1c 5.2 however study is inaccurate with recent blood transfusion
Consistently Euglycemic though requiring minimal to none insulin correction during stay
OK to dc routine FS and sliding scale
Hypokalemia
monitor and replete as necessary
stage 3 to bilateral lateral heels
cont local wound care
PT/OT appreciated SNF rehab family however prefers home with home services
Full Code
discussed with patient and Daughter Zee (also RN) who reports hospital bed delivery remains pending
I spent a total of 40 minutes with the patient or on the floor. More than 50% of this time involved counseling and coordination of care.
Anticipated Discharge: 24 - 48 hours
Subjective/Interval History
-
Date of Service: July 13, 2024
No acute distress. Appears comfortable at this time.
Objective Data
-
Labs:
Laboratory Results
07/13/24
06:01
WBC 12.7 H
Hgb 8.7 L
Hct 25.3 L
Plt Count 201
Sodium 143
Potassium 4.0
Chloride 116 H
Carbon Dioxide 24
BUN 15
Creatinine 2.2 H
Glucose 86
Calcium 7.9 L
Vital Signs:
Vital Signs
Temp Pulse Resp BP Pulse Ox
97.7 F 73 17 156/65 96
07/13/24 07:20 07/13/24 07:20 07/13/24 07:20 07/13/24 07:20 07/13/24 07:20
I&O
07/12/24 07/13/24 07/14/24
06:59 06:59 06:59
Intake Total 1180 / 1180 1080 / 1080
Output Total 2550 / 2550 3100 / 3100
Balance -1370 / -1370 -2019 /
[2024-07-13] MEDS: ROXICODONE 2.5 MG PO ×2 (07:46→16:40)
[2024-07-13] MEDS: LIDOCAINE 4% PATCH 2 PATCH TOPICAL (07:46)
[2024-07-13] MEDS: NORVASC 10 MG PO (07:47)
[2024-07-13] MEDS: ELIQUIS 5 MG PO ×2 (07:47→20:28)
[2024-07-13] MEDS: CEFTIN 250 MG PO (07:47)
--- NOTE | 2024-07-13 10:49 | W.PN.NEPH.PH ---
Today's Communication / Plan
-
Follow BMP
Maintain chronic Cordon
Assessment/Plan
-
Assessment
Sepsis from Cordon obstruction
Chronic Cordon
ROBERT (baseline 1.2)
Colostomy
Diabetes mellitus type 2
Heel ulcers
Chronic pain
Plan
ROBERT is slowly improving,now down to 2.2 and nonoliguric 2500
Creatinine still not at baseline
Follow BMP
Hemodynamically stable
No obstructive issues
Repeat urinalysis:filthy
Checked urine eosinophils: negative
-
-
Date of Service: July 13, 2024
CC / HPI / ROS
-
Chief Complaint:
ROBERT
History of Present Illness:
Hemodynamically stable off antihypertensives
Creatinine unchanged at 2.2
Remains on oral Ceftin for urosepsis
Review of Systems:
Nonoliguric via Cordon
Resting comfortably
No fevers
Labs
-
Labs:
WBC 12.7 10^3/uL (4.8-10.8) H 07/13/24 06:01
RBC 3.16 10^6/uL (4.70-6.10) L 07/13/24 06:01
Hgb 8.7 g/dL (13.0-18.0) L 07/13/24 06:01
Hct 25.3 % (39.0-52.0) L 07/13/24 06:01
Plt Count 201 10^3/uL (130-400) 07/13/24 06:01
Sodium 143 mmol/L (135-145) 07/13/24 06:01
Potassium 4.0 mmol/L (3.5-5.1) 07/13/24 06:01
Chloride 116 mmol/L (98-107) H 07/13/24 06:01
Carbon Dioxide 24 mmol/L (22-30) 07/13/24 06:01
BUN 15 mg/dl (9-20) 07/13/24 06:01
Creatinine 2.2 mg/dL (0.7-1.3) H 07/13/24 06:01
eGFR 30.28 07/13/24 06:01
Glucose 86 mg/dl (70-99) 07/13/24 06:01
Calcium 7.9 mg/dl (8.4-10.2) L 07/13/24 06:01
Phosphorus 3.0 mg/dl (2.5-4.5) 07/13/24 06:01
Albumin 3.1 g/dl (3.5-5.0) L 07/05/24 19:11
Physical Exam
-
Vital Signs:
Vital Signs
Temp Pulse Resp BP Pulse Ox
97.7 F 65 17 156/75 96
07/13/24 07:20 07/13/24 07:47 07/13/24 07:20 07/13/24 07:47 07/13/24 07:20
Cardiovascular:: Regular rate and rhythm
Respiratory:: Bilateral: CTA
Lung Excursion:: Normal
Abdomen:: Nontender and Soft
Bowel Sounds:: Normal
Extremity Edema:: None: Bilateral:
Cordon Catheter: Yes
Other Findings::
General: Not oriented to time or place
[2024-07-13 15:15] VITALS: BP 141/57
[2024-07-13] MEDS: REMERON 7.5 MG PO (21:35)
[2024-07-13] MEDS: ROXICODONE 5 MG PO (21:36)
[2024-07-13 23:00] VITALS: BP 157/61
[2024-07-14 06:00] VITALS: BMI 28.0
[2024-07-14] MEDS: NSS 1000 IV ×2 (06:03→21:35)
[2024-07-14 07:05] VITALS: BP 174/72
--- NOTE | 2024-07-14 07:15 | W.PN.HOSP.TC ---
Today's Communication/Plan
-
Awaiting hospital bed at home
Stop IV fluids
Assessment / Plan
Assessment / Plan
Physical Exam
General: no acute distress, appears comfortable at this time
HEENT: moist mucous membrane
Pulm: Clear to auscultation b/l
Cardio: RRR, S1/S2
Abd:Soft, NT, ND, BS+, Colostomy+
: Cordon catheter with yellow urine
Skin: Warm, Dry
Neuro: AOx1 oriented to self only
Psych: calm
Assessment/Plan
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
Per daughter, patient was functioning independently up until Feb 2024 hospitalization.
Septic shock, likely urinary source due to Cordon obstruction since replaced, lactate >4 since resolved
Catheter associated UTI
Persistent Leukocytosis, trend
Blood Urine Cx's pos for Klebsiella, sensitivities appreciated
Zosyn de-escalated to cefuroxime, completed total 7 days abx treatment, monitor off
ROBERT with a baseline creatinine of 1.2
Cordon for decompression
IVF stopped as patient is reportedly eating and drinking well
bladder renal us appreciated no acute abn's
Nephro eval appreciated
Cr improving, may consider trial of Void once Cr is closer to baseline
Hyperkalemia
5.8 likely related to urinary obstruction since resolved
Metabolic acidosis likely secondary to renal dysfunction
Since improved though not resolved
Toxic metabolic encephalopathy in the likely setting of infection.
since improved
History of CVA w/ residual aphasia stuttering
Acute Blood Loss Anemia
Significant Hematuria noted on Replacement Cordon since resolved (Hematuria likely exacerbated/associate with Eliquis use)
-Urology eval appreciated
-1PRBC transfusion 07/07 Hgb trickled down to 7.1 subsequently improved with transfusion to 9.2
-H&H stable, hematuria resolved, home Eliquis resumed
Paroxysmal AFIB
- Currently NSR
-cont Eliquis
Chronic Pain, Opioid Dependence
Back pain
Hx hip fracture repair (per daughter also RN reports patient's functional decline started in Feb 2024 with hip fx repair hospital course complicated with perforated colon requiring colostomy and Cordon placement)
cont pain regimen
lidocaine patches 2 ordered for back
Chronic Cordon Catheter
hx DM
A1c 5.2 however study is inaccurate with recent blood transfusion
Consistently Euglycemic though requiring minimal to none insulin correction during stay
OK to dc routine FS and sliding scale
Hypokalemia
monitor and replete as necessary
stage 3 to bilateral lateral heels
cont local wound care
PT/OT appreciated SNF rehab family however prefers home with home services
Full Code
PT/OT recommending SNF rehab however daughters who are healthcare workers want to take patient home when stable for discharge. Hospital Bed delivery pending.
Anticipated Discharge: 24 - 48 hours
Subjective/Interval History
-
Date of Service: July 14, 2024
Patient was seen and examined. He denied any chest pain, SOB or any new significant symptoms or complaints.
Objective Data
-
Labs:
Laboratory Results
07/14/24
06:58
WBC Pending
Hgb Pending
Hct Pending
Plt Count Pending
Sodium Pending
Potassium Pending
Chloride Pending
Carbon Dioxide Pending
BUN Pending
Creatinine Pending
Glucose Pending
Calcium Pending
Vital Signs:
Vital Signs
Temp Pulse Resp BP Pulse Ox
98.4 F 73 20 157/61 100
07/13/24 23:00 07/13/24 23:00 07/13/24 23:00 07/13/24 23:00 07/14/24 00:10
I&O
07/13/24 07/14/24 07/15/24
06:59 06:59 06:59
Intake Total 1080 / 1080 1050 / 1050 600 / 600
Output Total 3100 / 3100 2600 / 2600 100 / 100
Balance -2020 / -2020 -1550 / -1550 500 / 500
[2024-07-14 07:49] LABS: Hematocrit 26.9 % (39.0-52.0); Hemoglobin 9.2 g/dL (13.0-18.0); Mean Corp Hgb Conc. 34.2 g/dL (33.0-37.0); Mean Corpuscular Hgb 27.4 pg (27.0-31.0); Mean Corpuscular Volume 80.1 fL (80.0-94.0); Mean Platelet Volume 9.8 fL (7.4-10.4); Platelet Count 212 10^3/uL (130-400); Red Blood Cell Count 3.36 10^6/uL (4.70-6.10); Red Cell Dist. Width 18.1 % (11.5-14.5); White Blood Cell Count 13.3 10^3/uL (4.8-10.8)
[2024-07-14 08:05] LABS: Blood Urea Nitrogen 11 mg/dl (9-20); Calcium 8.1 mg/dl (8.4-10.2); Carbon Dioxide 24 mmol/L (22-30); Chloride 114 mmol/L (98-107); Estimated Creatinine Clearance 25 ml/min; Glucose 75 mg/dl (70-99); Magnesium 1.8 mg/dl (1.6-2.3); Potassium 3.9 mmol/L (3.5-5.1); Sodium 142 mmol/L (135-145); eGFR 32.02
[2024-07-14] MEDS: NORVASC 10 MG PO (08:52)
[2024-07-14] MEDS: ROXICODONE 2.5 MG PO ×2 (08:53→17:28)
[2024-07-14] MEDS: ELIQUIS 5 MG PO ×2 (08:53→20:07)
[2024-07-14] MEDS: LIDOCAINE 4% PATCH 2 PATCH TOPICAL (08:53)
[2024-07-14] MEDS: TYLENOL 650 MG PO ×2 (08:54→17:28)
[2024-07-14 09:24] VITALS: BP 149/67
--- NOTE | 2024-07-14 10:25 | CM ---
Dgts indicated they want pt to go home at [place] address.
They has hospital bed . Wound care requested air mattress . Ordered with [employer] (ph [phone], fax [phone]); faxed script for gel overlay mattress. They received the updated script and can deliver to patient's home.
Spoke with Keiry at [facility] division can see pt.
Will need ambulance Pt non ambulatory .
PLAN Home with [facility] fax [phone]
--- NOTE | 2024-07-14 13:38 | W.PN.NEPH.PH ---
Today's Communication / Plan
-
attempt wean IVF
follow labs
Assessment/Plan
-
Assessment
Sepsis from Cordon obstruction
Chronic Cordon
ROBERT (baseline 1.2)
Colostomy
Diabetes mellitus type 2
Heel ulcers
Chronic pain
Plan
ROBERT is slowly improving,now down to 2.1 and nonoliguric
Creatinine still not at baseline
Follow BMP
Hemodynamically stable
No obstructive issues
Checked urine eosinophils: negative
wean off IVF once po intake is appropriate
-
-
Date of Service: July 14, 2024
CC / HPI / ROS
-
Chief Complaint:
ROBERT
History of Present Illness:
Hemodynamically stable off antihypertensives
Creatinine slowly improving 2.1
completed abx for urosepsis
Review of Systems:
Nonoliguric via Cordon
Resting comfortably
No fevers
no cp or sob, no n/v
Labs
-
Labs:
WBC 13.3 10^3/uL (4.8-10.8) H 07/14/24 06:58
RBC 3.36 10^6/uL (4.70-6.10) L 07/14/24 06:58
Hgb 9.2 g/dL (13.0-18.0) L 07/14/24 06:58
Hct 26.9 % (39.0-52.0) L 07/14/24 06:58
Plt Count 212 10^3/uL (130-400) 07/14/24 06:58
Sodium 142 mmol/L (135-145) 07/14/24 06:58
Potassium 3.9 mmol/L (3.5-5.1) 07/14/24 06:58
Chloride 114 mmol/L (98-107) H 07/14/24 06:58
Carbon Dioxide 24 mmol/L (22-30) 07/14/24 06:58
BUN 11 mg/dl (9-20) 07/14/24 06:58
Creatinine 2.1 mg/dL (0.7-1.3) H 07/14/24 06:58
eGFR 32.02 07/14/24 06:58
Glucose 75 mg/dl (70-99) 07/14/24 06:58
Calcium 8.1 mg/dl (8.4-10.2) L 07/14/24 06:58
Phosphorus 3.0 mg/dl (2.5-4.5) 07/14/24 06:58
Albumin 3.1 g/dl (3.5-5.0) L 07/05/24 19:11
Physical Exam
-
Vital Signs:
Vital Signs
Temp Pulse Resp BP Pulse Ox
98.6 F 72 17 149/67 98
07/14/24 07:05 07/14/24 09:24 07/14/24 07:05 07/14/24 09:24 07/14/24 07:05
Cardiovascular:: Regular rate and rhythm
Respiratory:: Bilateral: CTA
Lung Excursion:: Normal
Abdomen:: Nontender and Soft
Extremity Edema:: None: Bilateral:
Cordon Catheter: Yes
Other Findings::
General: Not oriented to time or place
[2024-07-14 14:35] VITALS: BP 173/79; PULSE 77; O2SAT 100
[2024-07-14 15:00] VITALS: BP 173/79
[2024-07-14 15:16] VITALS: BP 173/79; PULSE 78; O2SAT 100
--- NOTE | 2024-07-14 15:27 | PTOTSP ---
Pt is nonambulatory at baseline with leg contracture. [place] lift is appropriate for transfers. No skilled PT goals. PT will sign off.
[2024-07-14] MEDS: REMERON 7.5 MG PO (21:36)
[2024-07-14] MEDS: ROXICODONE 5 MG PO (21:36)
[2024-07-14 23:12] VITALS: BP 160/70
[2024-07-15 06:00] VITALS: BMI 28.4
[2024-07-15 06:03] LABS: Hematocrit 26.5 % (39.0-52.0); Hemoglobin 8.8 g/dL (13.0-18.0); Mean Corp Hgb Conc. 33.2 g/dL (33.0-37.0); Mean Corpuscular Hgb 26.9 pg (27.0-31.0); Mean Platelet Volume 9.8 fL (7.4-10.4); Platelet Count 224 10^3/uL (130-400); Red Blood Cell Count 3.27 10^6/uL (4.70-6.10); Red Cell Dist. Width 18.1 % (11.5-14.5); White Blood Cell Count 15.1 10^3/uL (4.8-10.8)
[2024-07-15 06:45] LABS: Blood Urea Nitrogen 11 mg/dl (9-20); Calcium 8.3 mg/dl (8.4-10.2); Carbon Dioxide 24 mmol/L (22-30); Chloride 115 mmol/L (98-107); Estimated Creatinine Clearance 26 ml/min; Glucose 78 mg/dl (70-99); Magnesium 1.8 mg/dl (1.6-2.3); Potassium 4.5 mmol/L (3.5-5.1); Sodium 143 mmol/L (135-145); eGFR 33.95
[2024-07-15 08:16] VITALS: BP 161/73
[2024-07-15] MEDS: LIDOCAINE 4% PATCH 2 PATCH TOPICAL (09:06)
[2024-07-15] MEDS: NORVASC 10 MG PO (09:07)
[2024-07-15] MEDS: TYLENOL 650 MG PO ×2 (09:07→16:15)
[2024-07-15] MEDS: ELIQUIS 5 MG PO ×2 (09:07→20:09)
[2024-07-15] MEDS: ROXICODONE 2.5 MG PO ×2 (09:08→16:15)
--- NOTE | 2024-07-15 12:11 | W.PN.NEPH.PH ---
Today's Communication / Plan
-
d/c IVF and follow labs
Assessment/Plan
-
Assessment
Sepsis from Cordon obstruction
Chronic Cordon
ROBERT (baseline 1.2)
Colostomy
Diabetes mellitus type 2
Heel ulcers
Chronic pain
Plan
ROBERT is slowly improving,now down to 2 and nonoliguric
Creatinine still not at baseline
Follow BMP
Checked urine eosinophils: negative
wean off IVF
BPs are high, resume hydralazine BID, cont Amlodipine
d/c plan
-
-
Date of Service: July 15, 2024
CC / HPI / ROS
-
Chief Complaint:
ROBERT
History of Present Illness:
BP high on antihypertensives
Creatinine slowly improving 2
completed abx for urosepsis
Review of Systems:
Nonoliguric via Cordon
Resting comfortably
No fevers
no cp or sob, no n/v
Labs
-
Labs:
WBC 15.1 10^3/uL (4.8-10.8) H 07/15/24 05:34
RBC 3.27 10^6/uL (4.70-6.10) L 07/15/24 05:34
Hgb 8.8 g/dL (13.0-18.0) L 07/15/24 05:34
Hct 26.5 % (39.0-52.0) L 07/15/24 05:34
Plt Count 224 10^3/uL (130-400) 07/15/24 05:34
Sodium 143 mmol/L (135-145) 07/15/24 05:34
Potassium 4.5 mmol/L (3.5-5.1) 07/15/24 05:34
Chloride 115 mmol/L (98-107) H 07/15/24 05:34
Carbon Dioxide 24 mmol/L (22-30) 07/15/24 05:34
BUN 11 mg/dl (9-20) 07/15/24 05:34
Creatinine 2.0 mg/dL (0.7-1.3) H 07/15/24 05:34
eGFR 33.95 07/15/24 05:34
Glucose 78 mg/dl (70-99) 07/15/24 05:34
Calcium 8.3 mg/dl (8.4-10.2) L 07/15/24 05:34
Phosphorus 3.0 mg/dl (2.5-4.5) 07/15/24 05:34
Albumin 3.1 g/dl (3.5-5.0) L 07/05/24 19:11
Physical Exam
-
Vital Signs:
Vital Signs
Temp Pulse Resp BP Pulse Ox
98.1 F 79 14 161/73 100
07/15/24 08:16 07/15/24 09:07 07/15/24 08:16 07/15/24 09:07 07/15/24 08:16
Cardiovascular:: Regular rate and rhythm
Respiratory:: Bilateral: CTA
Lung Excursion:: Normal
Abdomen:: Nontender and Soft
Extremity Edema:: None: Bilateral:
Cordon Catheter: Yes
--- NOTE | 2024-07-15 14:52 | W.PN.HOSP.TC ---
Today's Communication/Plan
-
Discussed with registered nurse hh case manager, hospital bed has been delivered, but patient needs a gel mattress, registered nurse hh case manager needs to speak with daughter before setting up ambulance.
Assessment / Plan
Assessment / Plan
Physical Exam
General: no acute distress, appears comfortable at this time
HEENT: moist mucous membrane
Pulm: Clear to auscultation bilaterally
Cardio: RRR, S1/S2
Abd:Soft, NT, ND, BS+, Colostomy+
: Cordon catheter with yellow urine
Skin: Warm, Dry
Neuro: AOx1 oriented to self only
Psych: calm
Assessment/Plan
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
Per daughter, patient was functioning independently up until Feb 2024 hospitalization.
Septic shock, likely urinary source due to Cordon obstruction since replaced, lactate >4 since resolved
Catheter associated UTI
Persistent Leukocytosis, trend
Blood Urine Cx's pos for Klebsiella, sensitivities appreciated
Zosyn de-escalated to cefuroxime, completed total 7 days abx treatment, monitor off
ROBERT with a baseline creatinine of 1.2
Cordon for decompression
IVF stopped as patient is reportedly eating and drinking well
bladder renal us appreciated no acute abn's
Nephro eval appreciated
Cr improving, may consider trial of Void once Cr is closer to baseline
Hyperkalemia
5.8 likely related to urinary obstruction since resolved
Metabolic acidosis likely secondary to renal dysfunction
Since improved though not resolved
Toxic metabolic encephalopathy in the likely setting of infection.
since improved
History of CVA w/ residual aphasia stuttering
Acute Blood Loss Anemia
Significant Hematuria noted on Replacement Cordon since resolved (Hematuria likely exacerbated/associate with Eliquis use)
-Urology eval appreciated
-1PRBC transfusion 07/07 Hgb trickled down to 7.1 subsequently improved with transfusion to 8.8
-H&H stable, hematuria resolved, home Eliquis resumed
Paroxysmal AFIB
-Currently NSR
-Continue Eliquis
Chronic Pain, Opioid Dependence
Back pain
History of hip fracture repair (per daughter also RN reports patient's functional decline started in Feb 2024 with hip fx repair hospital course complicated with perforated colon requiring colostomy and Cordon placement)
cont pain regimen
lidocaine patches 2 ordered for back
Chronic Cordon Catheter
Diabetes mellitus
A1c 5.2 however study is inaccurate with recent blood transfusion
Consistently Euglycemic though requiring minimal to none insulin correction during stay
OK to dc routine FS and sliding scale
Hypokalemia
monitor and replete as necessary
stage 3 to bilateral lateral heels
cont local wound care
PT/OT appreciated SNF rehab family however prefers home with home services
Full Code
PT/OT recommending SNF rehab however daughters who are healthcare workers want to take patient home when stable for discharge. Hospital Bed has been delivered, but patient needs a gel mattress, registered nurse hh case manager needs to speak with daughter before
setting up ambulance.
Anticipated Discharge: Within 24 hours
Subjective/Interval History
-
Date of Service: July 15, 2024
Patient was seen and examined. No new symptoms or complaints, according to the patient.
Objective Data
-
Labs:
Laboratory Results
07/15/24
05:34
WBC 15.1 H
Hgb 8.8 L
Hct 26.5 L
Plt Count 224
Sodium 143
Potassium 4.5
Chloride 115 H
Carbon Dioxide 24
BUN 11
Creatinine 2.0 H
Glucose 78
Calcium 8.3 L
Vital Signs:
Vital Signs
Temp Pulse Resp BP Pulse Ox
98.1 F 79 14 161/73 100
07/15/24 08:16 07/15/24 09:07 07/15/24 08:16 07/15/24 09:07 07/15/24 08:16
I&O
07/14/24 07/15/24 07/16/24
06:59 06:59 06:59
Intake Total 1050 / 1050 2220 / 2220
Output Total 2600 / 2600 2500 / 2500
Balance -1550 / -1550 -280 / -280
[2024-07-15 15:49] VITALS: BP 155/78
--- NOTE | 2024-07-15 16:12 | CM ---
Left 2 messages for Enma [phone] to confirm dc to home. No call back .
Dgts indicated they want pt to go home at [place] address.
They has hospital bed . Called [employer] co pay has not been paid for gel overlay .Can not be delivered with out payment.
Ordered with [employer] (ph [phone], fax [phone]); faxed script for gel overlay mattress.
Pt has a overlay on mattress at hospital As per RN this is not reused. [place] from hospital bed will be sent with pt.
Spoke with Keiry at [facility] division can see pt.
Will need ambulance Pt non ambulatory .
PLAN Home with [facility] fax [phone] Please send overly from hospital bed with pt at dc.
[2024-07-15] MEDS: OMNICEF 300 MG PO (16:14)
[2024-07-15] MEDS: APRESOLINE 50 MG PO (20:09)
[2024-07-15] MEDS: ROXICODONE 5 MG PO (21:27)
[2024-07-15] MEDS: REMERON 7.5 MG PO (21:27)
[2024-07-15 23:25] VITALS: BP 148/67
[2024-07-16 06:00] VITALS: BMI 28.5
[2024-07-16 07:00] VITALS: BP 150/68
[2024-07-16 07:10] LABS: Hematocrit 27.3 % (39.0-52.0); Hemoglobin 9.2 g/dL (13.0-18.0); Mean Corp Hgb Conc. 33.7 g/dL (33.0-37.0); Mean Corpuscular Hgb 26.9 pg (27.0-31.0); Mean Corpuscular Volume 79.8 fL (80.0-94.0); Mean Platelet Volume 10.3 fL (7.4-10.4); Platelet Count 203 10^3/uL (130-400); Red Blood Cell Count 3.42 10^6/uL (4.70-6.10); Red Cell Dist. Width 18.2 % (11.5-14.5); White Blood Cell Count 13.7 10^3/uL (4.8-10.8)
[2024-07-16 07:41] LABS: Blood Urea Nitrogen 9 mg/dl (9-20); Calcium 8.6 mg/dl (8.4-10.2); Carbon Dioxide 24 mmol/L (22-30); Chloride 115 mmol/L (98-107); Estimated Creatinine Clearance 28 ml/min; Glucose 81 mg/dl (70-99); Magnesium 1.9 mg/dl (1.6-2.3); Phosphorus 3.4 mg/dl (2.5-4.5); Potassium 4.5 mmol/L (3.5-5.1); Sodium 141 mmol/L (135-145); eGFR 36.11
--- NOTE | 2024-07-16 07:43 | W.PN.HOSP.TC ---
Addendum entered and electronically signed by Westley Drew MD 07/16/24 16:17:
I just called patient's Kerri Moody at [phone], and I answered all of her questions and concerns to satisfaction.
Original Note:
Today's Communication/Plan
-
Discharge today
Assessment / Plan
Assessment / Plan
Physical Exam
General: no acute distress, appears comfortable at this time
HEENT: moist mucous membrane
Pulm: Clear to auscultation bilaterally
Cardio: RRR, S1/S2
Abd:Soft, NT, ND, BS+, Colostomy+
: Cordon catheter with yellow urine
Skin: Warm, Dry
Neuro: AOx1 oriented to self only
Psych: calm
Assessment/Plan
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
Per daughter, patient was functioning independently up until Feb 2024 hospitalization.
Septic shock, likely urinary source due to Cordon obstruction since replaced, lactate >4 since resolved
Catheter associated UTI
Persistent Leukocytosis
Blood Urine Cx's pos for Klebsiella, sensitivities appreciated
Zosyn de-escalated to cefuroxime, on discharge, Cefpodoxime 200 mg daily for another 5 days
RBOERT with a baseline creatinine of 1.2
Cordon for decompression
IVF previously stopped as patient is reportedly eating and drinking well
bladder renal us appreciated no acute abn's
Nephro eval appreciated
Cr improving, may consider trial of Void once Cr is closer to baseline --> voiding trial outpatient
Hyperkalemia
5.8 likely related to urinary obstruction since resolved
Metabolic acidosis likely secondary to renal dysfunction
Since resolved
Toxic metabolic encephalopathy in the likely setting of infection.
since improved
History of CVA w/ residual aphasia stuttering
Acute Blood Loss Anemia
Significant Hematuria noted on Replacement Cordon since resolved (Hematuria likely exacerbated/associate with Eliquis use)
-Urology eval appreciated
-1PRBC transfusion 07/07 Hgb trickled down to 7.1 subsequently improved with transfusion to 8.8
-H&H stable, hematuria resolved, home Eliquis resumed
Paroxysmal AFIB
-Currently NSR
-Continue Eliquis
Chronic Pain, Opioid Dependence
Back pain
History of hip fracture repair (per daughter also RN reports patient's functional decline started in Feb 2024 with hip fx repair hospital course complicated with perforated colon requiring colostomy and Cordon placement)
cont pain regimen
lidocaine patches 2 ordered for back
Chronic Cordon Catheter
Diabetes mellitus
A1c 5.2 however study is inaccurate with recent blood transfusion
Consistently Euglycemic though requiring minimal to none insulin correction during stay
OK to dc routine FS and sliding scale
Hypokalemia - RESOLVED
monitor and replete as necessary
Stage 3 wounds to bilateral lateral heels
cont local wound care
PT/OT appreciated SNF rehab family however prefers home with home services
Full Code
PT/OT recommending SNF rehab however daughters who are healthcare workers want to take patient home when stable for discharge. Hospital Bed has been delivered, and everything is set up today for discharge.
underground production foreperson: Kerri Moody [phone]
Today, I tried calling patient's daughter Kerri Moody at [phone], but she did not answer the phone.
More than 30 minutes spent in discharge including
Final examination of the patient
Summarizing hospital stay
Instructions for continuing care to all relevant caregivers
Preparation of discharge records, prescriptions, and referral forms
Total time spent (in minutes): 41
Anticipated Discharge: Today
Subjective/Interval History
-
Date of Service: July 16, 2024
Patient was seen and examined. He denied any new fever, chest pain, shortness of breath or any other new symptoms or complaints.
Objective Data
-
Labs:
Laboratory Results
07/16/24
06:48
WBC 13.7 H
Hgb 9.2 L
Hct 27.3 L
Plt Count 203
Sodium 141
Potassium 4.5
Chloride 115 H
Carbon Dioxide 24
BUN 9
Creatinine 1.9 H
Glucose 81
Calcium 8.6
Vital Signs:
Vital Signs
Temp Pulse Resp BP Pulse Ox
98.8 F 82 18 148/67 96
07/15/24 23:25 07/15/24 23:25 07/15/24 23:25 07/15/24 23:25 07/15/24 23:25
I&O
07/15/24 07/16/24 07/17/24
06:59 06:59 06:59
Intake Total 2220 / 2220 360 / 360
Output Total 3000 / 3000 2550 / 2550 200 / 200
Balance -780 / -780 -2190 / -2190 -200 / -200
[2024-07-16] MEDS: ROXICODONE 2.5 MG PO ×2 (08:41→16:07)
[2024-07-16] MEDS: ELIQUIS 5 MG PO (08:42)
[2024-07-16] MEDS: NORVASC 10 MG PO (08:42)
[2024-07-16] MEDS: OMNICEF 300 MG PO (08:42)
[2024-07-16] MEDS: APRESOLINE 50 MG PO (08:43)
[2024-07-16] MEDS: LIDOCAINE 4% PATCH 2 PATCH TOPICAL (13:35)
--- NOTE | 2024-07-16 13:57 | W.PN.NEPH.PH ---
Today's Communication / Plan
-
follow BMP
Assessment/Plan
-
Assessment
Sepsis from Cordon obstruction
Chronic Cordon
ROBERT (baseline 1.2)
Colostomy
Diabetes mellitus type 2
Heel ulcers
Chronic pain
Plan
Follow BMP
continue BP meds
encourage PO
-
-
Date of Service: July 16, 2024
CC / HPI / ROS
-
Chief Complaint:
ROBERT
History of Present Illness:
BP high on antihypertensives
Creatinine slowly improving 1.9
completed abx for urosepsis
Review of Systems:
Nonoliguric via Cordon
no cp or sob, no n/v
not eating today
Labs
-
Labs:
WBC 13.7 10^3/uL (4.8-10.8) H 07/16/24 06:48
RBC 3.42 10^6/uL (4.70-6.10) L 07/16/24 06:48
Hgb 9.2 g/dL (13.0-18.0) L 07/16/24 06:48
Hct 27.3 % (39.0-52.0) L 07/16/24 06:48
Plt Count 203 10^3/uL (130-400) 07/16/24 06:48
Sodium 141 mmol/L (135-145) 07/16/24 06:48
Potassium 4.5 mmol/L (3.5-5.1) 07/16/24 06:48
Chloride 115 mmol/L (98-107) H 07/16/24 06:48
Carbon Dioxide 24 mmol/L (22-30) 07/16/24 06:48
BUN 9 mg/dl (9-20) 07/16/24 06:48
Creatinine 1.9 mg/dL (0.7-1.3) H 07/16/24 06:48
eGFR 36.11 07/16/24 06:48
Glucose 81 mg/dl (70-99) 07/16/24 06:48
Calcium 8.6 mg/dl (8.4-10.2) 07/16/24 06:48
Phosphorus 3.4 mg/dl (2.5-4.5) 07/16/24 06:48
Albumin 3.1 g/dl (3.5-5.0) L 07/05/24 19:11
Physical Exam
-
Vital Signs:
Vital Signs
Temp Pulse Resp BP Pulse Ox
98.0 F 74 18 150/68 100
07/16/24 07:00 07/16/24 08:43 07/16/24 07:00 07/16/24 08:43 07/16/24 13:08
Cardiovascular:: Regular rate and rhythm
Respiratory:: Bilateral: CTA
Lung Excursion:: Normal
Abdomen:: Nontender and Soft
Bowel Sounds:: Normal
Extremity Edema:: None: Bilateral:
[2024-07-16 15:09] VITALS: BP 128/65
--- NOTE | 2024-07-16 16:16 | CM ---
LM with Enma [phone] to confirm dc to home. No call back .
Spoke with Kerri she is here visiting and she said ambulance can be set up after 5 pm.
Medical nec form completed Ambulance set up for 5;30 pm
Pt will be sent with bed overlay for his home hospital bed.
[facility] aware of dc
IMM reviewed with pt.Agrees with dc..
PLAN Home with [facility] fax [phone] Please send overly from hospital bed with pt at dc.
--- NOTE | 2024-07-16 18:27 | PTCARENOTE ---
patient discharged with soft care overlay .
== END 2024-07-16 18:02 | disposition home health service (06) | DRG 698 ==
LOC: 3 WEST ACU 22:39
PROVIDERS: Hospitalist; Internal Medicine; Physician Assistant; ADMITTING PHYSICIAN Internal Medicine; ATTENDING PHYSICIAN Hospitalist; CONSULT PHYSICIAN Specialist; CONSULT PHYSICIAN Surgery; EMERGENCY PHYSICIAN Emergency Medicine; FAMILY PHYSICIAN Internal Medicine
PROC: 30233N1 Transfusion of Nonautologous Red Blood Cells into Peripheral Vein, Percutaneous Approach (ICD-10-PCS; 2024-07-07)
DX: T83.511A Infection and inflammatory reaction due to indwelling urethral catheter, initial encounter (principal); A41.89 Other specified sepsis; L89.623 Pressure ulcer of left heel, stage 3; L89.613 Pressure ulcer of right heel, stage 3; R65.21 Severe sepsis with septic shock; G92.8 Other toxic encephalopathy; E87.20 Acidosis, unspecified; F03.93 Unspecified dementia, unspecified severity, with mood disturbance; F03.94 Unspecified dementia, unspecified severity, with anxiety; N17.9 Acute kidney failure, unspecified; M48.54XA Collapsed vertebra, not elsewhere classified, thoracic region, initial encounter for fracture; D62 Acute posthemorrhagic anemia; F11.20 Opioid dependence, uncomplicated; D68.32 Hemorrhagic disorder due to extrinsic circulating anticoagulants; T83.091A Other mechanical complication of indwelling urethral catheter, initial encounter; N39.0 Urinary tract infection, site not specified; I50.9 Heart failure, unspecified; G89.29 Other chronic pain; I48.0 Paroxysmal atrial fibrillation; I11.0 Hypertensive heart disease with heart failure; E78.5 Hyperlipidemia, unspecified; N32.3 Diverticulum of bladder; R31.9 Hematuria, unspecified; E87.6 Hypokalemia; E87.5 Hyperkalemia; N40.0 Benign prostatic hyperplasia without lower urinary tract symptoms; E11.649 Type 2 diabetes mellitus with hypoglycemia without coma; Y84.6 Urinary catheterization as the cause of abnormal reaction of the patient, or of later complication, without mention of misadventure at the time of the procedure; Y92.9 Unspecified place or not applicable; Y73.2 Prosthetic and other implants, materials and accessory gastroenterology and urology devices associated with adverse incidents; I69.320 Aphasia following cerebral infarction; Z93.3 Colostomy status; Z91.013 Allergy to seafood; Z79.01 Long term (current) use of anticoagulants; Z79.4 Long term (current) use of insulin; Z90.49 Acquired absence of other specified parts of digestive tract
CPT/HCPCS: 70450; 74176; 76770; 80048; 80053; 81003; 81015; 81099; 82607; 82728; 82746; 82962; 83036; 83540; 83550; 83605; 83735; 84100; 85014; 85018; 85025; 85027; 86850; 86900; 86901; 86920; 87040; 87070; 87077; 87086; 87149; 87186; 87205; 93005; 96365; 96366; 96367; 96375; 97163; 97167; 97530; 97535; 99285; J7030; P9016